=== PATIENT | female | born 1970 | race Caucasian/White ===

== ENCOUNTER → 2016-11-08 | Outpatient (CLI) | payer OTHER ==
[2016-11-08 18:17] LABS: THYROID STIMULATING HORMONE 0.692 uIu/ml (0.300-4.500)
== END | disposition home or self-care (01) ==
LOC: C.LABMFLN 13:57
PROVIDERS: ATTEND Family Medicine
DX: E03.9 Hypothyroidism, unspecified (principal)

== ENCOUNTER → 2018-05-14 | Outpatient (CLI) | payer OTHER ==
[2018-05-14 18:51] LABS: URIC ACID 4.4 mg/dl (2.6-7.2)
== END | disposition home or self-care (01) ==
LOC: C.LABMFLN 11:32
PROVIDERS: ATTEND Family Medicine
DX: M79.676 Pain in unspecified toe(s) (principal); E03.9 Hypothyroidism, unspecified

== ENCOUNTER 2024-08-25 05:58 | Observation (INO) ==
--- NOTE | 2024-08-05 11:56 | PAT Medication Instructions ---
Medication Instructions Date of Service August 05, 2024 Home Medications Medication Instructions Recorded blood-glucose meter (OneTouch #1 ea 05/19/22 Ultra2 Meter) lancets (OneTouch UltraSoft #100 ea 05/19/22 Lancets) ondansetron 4 mg disintegrating 4 mg PO Q8H PRN nausea and 07/27/22 tablet vomiting #60 tabs blood sugar diagnostic (OneTouch #100 ea 09/08/22 Ultra Test strips) duloxetine 60 mg capsule,delayed 60 mg PO BID #180 caps 11/20/22 release (Cymbalta) ondansetron 4 mg disintegrating tablet 4 mg PO Q8H PRN duloxetine 60 mg capsule,delayed release (Cymbalta) 60 mg PO BID aspirin 81 mg tablet,delayed release (Adult Low Dose Aspirin) 81 mg PO DAILY cholecalciferol (vitamin D3) 125 mcg (5,000 unit) capsule 1,000 unit PO DAILY magnesium 200 mg tablet 400 mg PO DAILY PRN metronidazole 0.75 % (37.5 mg/5 gram) vaginal gel 0.75 g vaginal DAILY PRN acetaminophen 500 mg tablet 1,000 mg PO Q6H PRN albuterol sulfate 90 mcg/actuation aerosol inhaler 2 puff inhalation QID PRN fluticasone 500 mcg-salmeterol 50 mcg/dose blistr powdr for inhalation 2 inh inhalation DAILY PRN levothyroxine 137 mcg tablet 137 mcg PO QAM omeprazole 40 mg capsule,delayed release 40 mg PO QAM pregabalin 150 mg capsule (Lyrica) 150 mg PO TID rosuvastatin 20 mg tablet (Crestor) 20 mg PO UD semaglutide 2 mg/dose (8 mg/3 mL) subcutaneous pen injector (Ozempic) 2 mg subcut WK STOP 7 days before surgery semaglutide 2 mg/dose (8 mg/3 mL) subcutaneous pen injector (Ozempic) 2 mg subcut WK Continue as directed fluticasone 500 mcg-salmeterol 50 mcg/dose blistr powdr for inhalation 2 inh inhalation DAILY PRN(if needed) rosuvastatin 20 mg tablet (Crestor) 20 mg PO UD ASK your prescriber and surgeon aspirin 81 mg tablet,delayed release (Adult Low Dose Aspirin) 81 mg PO DAILY STOP taking 24 hours before surgery metronidazole 0.75 % (37.5 mg/5 gram) vaginal gel 0.75 g vaginal DAILY PRN DO NOT take the morning of surgery cholecalciferol (vitamin D3) 125 mcg (5,000 unit) capsule 1,000 unit PO DAILY magnesium 200 mg tablet 400 mg PO DAILY PRN Take morning of surgery With a small sip of water, OTHERWISE NOTHING TO EAT OR DRINK AFTER MIDNIGHT: ondansetron 4 mg disintegrating tablet 4 mg PO Q8H PRN(if needed) duloxetine 60 mg capsule,delayed release (Cymbalta) 60 mg PO BID acetaminophen 500 mg tablet 1,000 mg PO Q6H PRN(if needed) albuterol sulfate 90 mcg/actuation aerosol inhaler 2 puff inhalation QID PRN(use if needed; please bring with you to hospital day of surgery if possible) levothyroxine 137 mcg tablet 137 mcg PO QAM omeprazole 40 mg capsule,delayed release 40 mg PO QAM pregabalin 150 mg capsule (Lyrica) 150 mg PO TID Take evening before surgery ondansetron 4 mg disintegrating tablet 4 mg PO Q8H PRN(if needed) duloxetine 60 mg capsule,delayed release (Cymbalta) 60 mg PO BID acetaminophen 500 mg tablet 1,000 mg PO Q6H PRN(if needed) albuterol sulfate 90 mcg/actuation aerosol inhaler 2 puff inhalation QID PRN(if needed) pregabalin 150 mg capsule (Lyrica) 150 mg PO TID Other Notes If you have any questions please call us at [phone] or [phone] or [phone] or [phone]
--- NOTE | 2024-08-11 13:20 | Anesthesiology Consultation ---
Date of Service August 11, 2024 Assessment & Plan (1) Encounter for pre-operative examination: Plan - check BSG am DOS. - awaiting surgeon ordered [facility] PCP pre-operative evaluation. - semaglutide instructions: Patient informed at PAT visit to stop 7 days prior to surgery- voiced understanding. Patient advised to check with prescriber to see if alternative diabetic management changes recommended while holding semaglutide- if so, patient to call back to PAT to update chart and discuss if any further preop medication instructions needed. Chart Review Chart Review: Pending: Refer to Additional Notes / Consult section and Patient seen in Pre Admission Testing Teaching & Discussion Pre-Anesthesia Teaching/Discussion Notes: Instructed NPO after midnight before surgery, except medications with 15 cc of water. Medication instructions provided according to the [facility] guidelines. History Surgery Operation Date: 08/25/24 12:25 Proposed Procedures p Anterior Cervical Discectomy and Fusion C5-C7 - Jass Huang DO Height/Weight Height: 5 ft 3.7 in Weight: 96.9 kg Allergies Allergy/AdvReac Type Severity Reaction Status Date / Time paroxetine [From Paxil] Allergy Severe suicidal Verified 08/11/24 13:31 tendencies codeine Allergy Mild Dizziness Verified 08/05/24 10:52 NSAIDS (Non-Steroidal Allergy Mild hx gastric Verified 08/05/24 10:52 Anti-Inflamma bypass / ulcer Medications Home Medications Medication Instructions Recorded Confirmed Last Taken blood-glucose meter (OneTouch #1 ea 05/19/22 01/05/23 Unknown Ultra2 Meter) lancets (OneTouch UltraSoft #100 ea 05/19/22 01/05/23 Unknown Lancets) ondansetron 4 mg disintegrating 4 mg PO Q8H PRN nausea and 07/27/22 08/05/24 Unknown tablet vomiting #60 tabs blood sugar diagnostic (OneTouch #100 ea 09/08/22 01/05/23 Unknown Ultra Test strips) duloxetine 60 mg capsule,delayed 60 mg PO BID #180 caps 11/20/22 08/05/24 Unknown release (Cymbalta) aspirin 81 mg tablet,delayed 81 mg PO DAILY 01/02/23 08/05/24 Unknown release (Adult Low Dose Aspirin) cholecalciferol (vitamin D3) 125 1,000 unit PO DAILY 01/04/23 08/05/24 Unknown mcg (5,000 unit) capsule magnesium 200 mg tablet 400 mg PO DAILY PRN muscle cramps 01/05/23 08/05/24 Unknown metronidazole 0.75 % (37.5 mg/5 0.75 g vaginal DAILY PRN vaginosis 01/05/23 08/05/24 Unknown gram) vaginal gel acetaminophen 500 mg tablet 1,000 mg PO Q6H PRN Pain 08/05/24 08/05/24 Unknown albuterol sulfate 90 mcg/actuation 2 puff inhalation QID PRN Cough 08/05/24 08/05/24 Unknown aerosol inhaler fluticasone 500 mcg-salmeterol 50 2 inh inhalation DAILY PRN sob 08/05/24 08/05/24 Unknown mcg/dose blistr powdr for inhalation levothyroxine 137 mcg tablet 137 mcg PO QAM 08/05/24 08/05/24 Unknown omeprazole 40 mg capsule,delayed 40 mg PO QAM 08/05/24 08/05/24 Unknown release pregabalin 150 mg capsule (Lyrica) 150 mg PO TID 08/05/24 08/05/24 Unknown rosuvastatin 20 mg tablet (Crestor) 20 mg PO UD 08/05/24 08/05/24 Unknown semaglutide 2 mg/dose (8 mg/3 mL) 2 mg subcut WK 08/05/24 08/05/24 Unknown subcutaneous pen injector (Ozempic) Past Medical History Medical History (Updated 08/11/24 @ 15:[address], MARIA T) Allergic rhinitis Anxiety Atherosclerosis of aorta Branch retinal vein occlusion Chronic GERD controlled, stable per pt Common migraine without aura Depression pt denies Fibromyalgia Ameya's thyroiditis History of COVID-19 (08/2023) History of non anemic vitamin B12 deficiency Hx of deep venous thrombosis (2014) right knee, unknown cause, eliquis x 7 months Hx of osteomyelitis had both pinky toes amputated Hypercholesterolemia Idiopathic macular telangiectasia type 2 pt. reports slowly losing central vision, has 2 small blind spots Lung nodules has annual lung ct Lymphadenopathy MGUS (monoclonal gammopathy of unknown significance) Osteoarthritis Parkinsonism pt. denies - pt. states "leftover tics from when i was placed on haldol in 2017" Peripheral neuropathy severe in feet and hands, reason for neurostimulator Plantar fascial fibromatosis of both feet PUD (peptic ulcer disease) Sleep apnea "mild" - not enough for cpap Spinal cord stimulator status (09/2022) due to severe neuropathy in feet Tobacco use Tourette's syndrome pt denies Type 2 diabetes mellitus NIDDM Patient denies h/o stroke, seizures, heart attack, heart failure, or blood transfusions. Exercise / Class Metabolic Activity II 4-5 Yardwork/Stairs/Walk up hill (denies chest discomfort or shortness of breath with one flight of stairs) Past Family History Family History Mother Coronary heart disease Dyslipidemia Past Surgical History Surgical History History of amputation of toe (2018) both small pinky toes due to diabetic ulcers / 2017 / 2018 History of appendectomy History of carpal tunnel release x2 on both wrists History of decompression of both ulnar nerves (2008) History of esophagogastroduodenoscopy (EGD) Hx of colonoscopy Hx of tonsillectomy S/P cholecystectomy S/P UVPP (uvulopalatopharyngoplasty) Status post gastric bypass for obesity (2006) Past Anesthesia History No Hx of Anesthesia Complications and No Family Hx of Anesthesia Complications History of PONV No Hx of PONV and No Hx of Motion Sickness Social History Smoking Status: Current every day smoker tobacco type: cigarettes Smoking cigarettes per day: 1 ppd (advised) Do You Dip or Chew Tobacco: No Hx Alcohol Use: Yes Alcohol type: hard liquor alcohol intake frequency: a few times a week Hx Substance Use: Yes substance use type: marijuana Last Used Substance Other:: medical marijuana (advised) Review of Systems Patient denies chest pain, shortness of breath, dyspnea on exertion, fever, chills, cough, wheezing, or palpitations. Physical Exam Vital Signs Vitals BP 121/80 P 83 TEMP 98.6 SP02 94% on RA RESP 18 Physical Patient resting comfortably in chair in no acute distress, alert and oriented, responding appropriately throughout visit Full cervical extension range of motion without pain TMD < 3 finger breadths Mallampati Score 3 Dentition: edentulous, full upper and lower dentures Lungs: normal respiratory effort. Good air movement, clear throughout to auscultation, no adventitious breath sounds Cardiac: regular rate and rhythm, no murmurs noted Carotid arteries: negative bruit bilat Lab Results Anesthesia Preop Results Results Anesthesia Widget: WBC 9.24 K/ul (4.8-10.8) 08/11/24 Hgb 14.7 g/dl (12.0-16.0) 08/11/24 Hct 43.7 % (37.0-47.0) 08/11/24 Plt 296 K/uL (130-400) 08/11/24 Na 139 mmol/L (136-145) 08/11/24 K 4.4 mmol/L (3.5-5.1) 08/11/24 Cl 103 mmol/L (98-107) 08/11/24 CO2 31 mmol/L (21-32) 08/11/24 BUN 11 mg/dl (6-23) 08/11/24 Creat 0.68 mg/dl (0.6-1.2) 08/11/24 Glucose Level 93 mg/dl (70-99(Fasting)) 08/11/24 PT 10.0 Seconds (9.0-12.0) 08/11/24 PTT 26 Seconds (21-31) 08/11/24 INR 0.9 (0.9-1.1) 08/11/24 HA1c 6.2 % (4.5-5.6) H 08/11/24 Urine Color Dark Yellow 08/11/24 Urine Appearance Cloudy (Clear) A 08/11/24 Urine pH 6.0 (4.5-7.5) 08/11/24 Urine Specific [place] 1.026 (1.000-1.030) 08/11/24 Urine Protein Negative (Negative) 08/11/24 Urine Glucose (UA) Negative (Negative) 08/11/24 Urine Ketones Trace (Negative) H 08/11/24 Urine Blood Negative (Negative) 08/11/24 Urine Nitrite Negative (Negative) 08/11/24 Urine Bilirubin Negative (Negative) 08/11/24 Urine Urobilinogen Negative (Negative) 08/11/24 Urine Leukocyte Esterase Negative (Negative) 08/11/24 Urine WBC (Auto) 0-5 /hpf (0-5) 08/11/24 Urine RBC (Auto) 3-5 /hpf (0-2) H 08/11/24 Urine Hyaline Casts (Auto) 0-2 /lpf (0-2) 08/11/24 Urine Epithelial Cells (Auto) 3-5 /hpf (0-2) H 08/11/24 Urine Bacteria (Auto) 1+ (None Seen) H 08/11/24 Blood Type B Positive 08/11/24 Antibody Screen NEGATIVE 08/11/24 Testing Laboratory Results Surgeon's office made aware of abnormal UA. Electrocardiogram Date: 08/11/24 NSR, rate 70 bpm Echocardiogram Date: 12/05/22 EF 60-64% Non-dilated cardiac chambers No significant valvular pathology Stress Test Date: 01/06/19 Inadequate cardiovascular stress test MPHR 72% METS 4.7 EF 66% No LV segmental wall motion abnormalities Other Testing Chest CT 04/03/24 Stable size of multiple solid nodules in both lungs measuring up to 5 mm in the right upper lobe Small calcified granuloma in the right middle lobe Stable small dome-shaped lesion along the left major fissure, consistent with a benign intrapulmonary lymph node
--- OUTSIDE RECORDS SUMMARY | 2024-08-25 06:07 | External Medical Summary ---
Author Name Unknown Address Unknown Organization [id number]:[facility] - [address] [facility] [place] [facility] [place] [address] Laboratory Report Ordering Provider Test Date Status BERHANE BUTLERULL 08/20/2024 10:42:30 Final Observation Date Value Abnormality Reference (Units ) Status T4, Free 08/20/2024 10:42:30 0.9 0.9-1.7 (n g/dL) Final Performing Location [facility] [address] [facility] [place] [id number]
--- OUTSIDE RECORDS SUMMARY | 2024-08-25 06:07 | External Medical Summary | Summary of Care ---
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 Name Role Phone Wesley Salguero MD Primary Care Provider Reason for Visit * Reason Comments pre-op exam Encounter Details Date Type Department Care Team ([facility] st Contact Info) Description 08/14/2024 10:00 AM EST Office Visit [facility] [address] [place] [id number] Jasmine Barreto PA-C [address] [place] [address] Preoperative general physical examination*; Cervical spondylosis with radiculopathy; Type 2 diabetes mellitus with hemoglobin A1c goal of less than 7.0% ([facility]) Allergies Active Allergy Reactions Criticality Noted Date Comments Codeine Itching,Other (Pleas e comment) 06/17/2016 "dizzy" Nickel 01/15/2023 Earrings - infection Nsaids Other (Please comment) 06/17/2016 Avoid d/t hx gastric bypass Paroxetine Hydrochloride Psych complications Medium 06/02/2010 documented as of this encounter (statuses as of 08/14/2024) Medications Polyethylene Glycol 3350 17 GM/SCOOP Oral Powder (Miralax)Indicatio ns:Chronic constipation Take 17 g by mouth in the morning. One cap full in juice, to effect 1 stool per day. .. 850 g 2 09/22/20 22 Active Magnesium 400 MG Oral Capsule Take 2 Capsules by mouth at bedtime. If diarrhea develops cut to 1 capsule at night 60 Capsule 5 02/02/20 23 Active metroNIDAZOLE 0.75 % Vaginal Gel Administer 1 Applicator into the vagina once a day Sunday and only. For 6 months following completion of oral antibiotics. 70 g 2 02/02/20 23 Active Nystatin 797291 UNIT/GM External Powder (Nystop)Indication s:Intertrigo Apply topically to affected area 3 times a day. Apply to groin until rash resolved. 60 g 1 02/02/20 23 Active Vitamin D (Cholecalciferol) 25 MCG (1000 UT) Oral Capsule Take by mouth every morning. 02/02/20 23 Active Ondansetron HCl 4 MG Oral Tablet (Zofran) Take 1 Tablet by mouth every 8 hours as needed for Nausea. 20 Tablet 1 04/13/20 23 Active Benzonatate 100 MG Oral Capsule (Tessalon Perlleticia)Indications :Bronchitis, complicated TAKE 1 CAPSULE BY MOUTH THREE TIMES A DAY NEEDED FOR COUGH 30 Capsule 1 09/20/20 23 Active Fluticasone-Salmet lindsey 500-50 MCG/ACT Inhalation Aerosol Powder Breath Activated (Advair Diskus)Indications :Asthma with severity to be determined INHALE 1 PUFF BY MOUTH IN THE MORNING AND BEFORE BEDTIME 180 Each 2 10/03/19 24 Active Famotidine 20 MG Oral Tablet (Pepcid) Take one tablet by mouth early afternoon and at bedtime 180 Tablet 3 12/17/19 24 Active Levothyroxine Sodium 137 MCG Oral Tablet (Levoxyl)Indicatio ns:Acquired hypothyroidism Take 1 Tablet by mouth daily first thing in the morning. (at least 30 min prior to breakfast or other meds) 90 Tablet 3 01/04/20 24 Active Albuterol Sulfate HFA 108 (90 Base) MCG/ACT Inhalation Aerosol SolutionIndication s:Bronchitis, complicated INHALE 2 PUFFS BY MOUTH 4 TIMES A DAY NEEDED FOR COUGH, SHORTNESS OF BREATH OR WHEEZING. 18 g 2 01/11/20 24 Active DULoxetine HCl 60 MG Oral Capsule Delayed Release Particles (Cymbalta)Indicati ons:Spinal stenosis of lumbar region with neurogenic claudication Take 1 Capsule by mouth in the morning and 1 Capsule before bedtime. 180 Capsule 2 01/23/20 24 Active tiZANidine HCl 4 MG Oral Tablet (Zanaflex)Indicati ons:Cervical radicular pain,Cervical myofascial pain syndrome TAKE 1 TABLET BY MOUTH EVERY 8 HOURS NEEDED FOR MUSCLE SPASM 90 Tablet 2 02/19/20 24 Active Ozempic (2 MG/DOSE) 8 MG/3ML Subcutaneous Solution Pen-injector (Semaglutide (2 MG/DOSE)) Inject 2 mg under the skin once a week. 3 mL 5 03/13/20 24 Active Omeprazole 40 MG Oral Capsule Delayed Release (PriLOSEC)Indicati ons:Gastroesophage al reflux disease without esophagitis Take 1 Capsule by mouth in the morning. 90 Capsule 1 03/24/20 24 Active Aspirin 81 MG Oral Tablet Delayed Release (Aspirin 81)Indications:His tory of DVT (deep vein thrombosis) Take 1 Tablet by mouth in the morning. 90 Tablet 1 03/24/20 24 Active Rosuvastatin Calcium 20 MG Oral Tablet (Crestor)Indicatio ns:Mixed dyslipidemia TAKE 1 TAB BY MOUTH ONCE A DAY ON SUNDAY, SUNDAY, AND SUNDAY ONLY. 39 Tablet 1 05/16/20 24 Active Pregabalin 150 MG Oral Capsule (Lyrica)Indication s:Spinal stenosis of lumbar region with neurogenic claudication TAKE 1 CAPSULE BY MOUTH EVERY DAY IN THE MORNING , AT NOON, AND BEFORE BEDTIME 90 Capsule 2 07/25/20 24 Active Ozempic (1 MG/DOSE) 4 MG/3ML Subcutaneous Solution Pen-injector (Semaglutide (1 MG/DOSE)) Inject 1 mg under the skin once a week. 3 mL 11 03/13/20 24 024 Discontin ued(Medic ation List Clean Up) Fluconazole 200 MG Oral Tablet (Diflucan)Indicati ons:Esophageal candidiasis (HCC) Take 400 mg (2 tablets) on day 1 then 1 tablet (200 mg) daily for 3 weeks total. 22 Tablet 05/20/20 24 024 Discontin ued(Medic ation List Clean Up) Doxycycline Hyclate 100 MG Oral Capsule Take 1 Capsule by mouth in the morning and 1 Capsule before bedtime. 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 05/25 Atherosclerosis of aorta 04/24/2023 Ede de la Tourette's syndrome 04/24/2023 Essential tremor 04/24/2023 Sensorineural hearing loss ( SNHL) of left ear with restricted hearing of right ear 04/24/2023 Acquired hypothyroidism 02/02/2023 Spinal cord stimulator status 02/02/2023 Bariatric surgery status 02/01/2023 Mixed dyslipidemia 02/01/2023 Lumbar spinal stenosis 11/29/2020 Type 2 diabetes mellitus wit h hemoglobin A1c goal of less than 7.0% 07/08/2009 GONZALES RESEARCH OTHER*[id number] 01/22/2007 Peripheral nerve disease 09/24/2002 Tobacco use documented as of this encounter (statuses as of 08/14/2024) Resolved Problems Problem Noted Date Diagnosed Date Resolved Date Acute deep vein thrombosis ( DVT) of lower extremity 04/24/2023 05/24/2023 Osteomyelitis 04/24/2023 08/07/2023 PTSD (post-traumatic stress disorder) 02/02/2023 08/14/2024 Disc disorder of lumbar region 11/29/2020 02/01/2023 Spells of decreased attentiveness 11/21/2016 02/01/2023 Xerostomia 09/06/2016 02/02/2023 Tongue pain 09/06/2016 11/14/2022 KARI (obstructive sleep apnea) 04/21/2015 02/02/2023 Hypersomnia due to drug 02/09/201510/26 Postgastric surgery syndrome 03/31/2014 02/01/2023 Overview (06/25/2017): ICD-10 update of inactive term HTN, goal below 140/80 05/13/201211/14 Overview: Per HTN Protocol #27. HPV DNA OF CERVIX POSITIVE-ASCUS 12/05/2010 02/02/2023 Obesity, morbid (more than 1 00 lbs over ideal weight or BMI > 40) 03/08/2010 11/14/2022 Overview (12/13/2015): Per Obesity Protocol, #19 ICD-10 update of inactive term HTN, GOAL BELOW 130/80 08/17/200905/16 Overview (08/17/2009): Modified per HTN protocol #16. Intestinal postoperative nonabsorption 04/10/2007 11/14/2022 ADVANCE DIRECTIVE INFORMATION 02/26/2007 11/14/2022 Overview (02/26/2007): No, Advance Directive brochure given to patient. DM type 2, not at goal 07/04/200607/08 Overview (07/08/2009): Modified per Diabetes protocol #14. Hypothyroidism 07/04/2006 02/02/2023 HYPERTENSION NOS 07/04/2006 08/17/2009 Overview (08/17/2009): Modified per HTN protocol #16. PURE HYPERCHOLESTEROLEM 07/04/200608/24 Overview (09/02/2009): Per Lipid Taxonomy. HYPERSOMNI W SLEEP APNEA 07/04/200607/2023 Gastroesophageal reflux dise ase without esophagitis 07/04/2006 08/14/2024 documented as of this encounter (statuses as of 08/14/2024) Immunizations Name Administration Dates Next Due COVID-19 mRNA, LNP-s, No Pre serve, 2-Dose Series (Pfizer) 07/06/2021,11/29/2020,11/01/2020 COVID-19, mRNA, LNP-s, PF, B ooster, 100mcg/0.5mg (Moderna) 01/18/2022 Covid-19, Mrna, Lnp-s, Pf, B ivalent, 30 Mcg, IM, 12 yrs and above (Pfizer) 06/12/2022 Pneumococcal Conjugate Vacci ne, 20-valent (Eurmkag39) 02/01/2023 Seasonal Influenza Vac., MDV , IM, 0.5 mL (Fluzone) 06/14/2016 Seasonal Influenza Virus Vac cine, Unspecified Formulation 07/06/2021,08/12/2020,07/29/2019 Seasonal Influenza, Recombin ant, RIV4, PF, (Flublock) 06/12/2022,08/08/2020,07/29/2019 TDAP (age 10 and older)(Boostrix) 05/19/2017 documented as of this encounter Social History Tobacco Use Types Packs/Day Years Used Date Smoking Tobacco: Every Day Cigarettes 1 35 Started: 01/1986; Last attempted to quit: 01/2021 Smokeless Tobacco: Never Alcohol Use Standard Drinks/Week Comments Yes 0 (1 standard drink = 0.6 oz pur e alcohol) weekly Hunger Vital Sign Answer Date Recorded Within the past 12 months, y ou worried that your food would run out before you got the money to buy more. Never true 07/31/20 24 Within the past 12 months, t he food you bought just didn't last and you didn't have money to get more. Never true 07/31/2024 Childcare Answer Date Recorded Do you feel overwhelmed with taking care of a child, family member or friend? No 07/31/2024 Does your family need help f inding childcare? (Household - for ages 0-17 years) Not on file 07/31/2024 Clothing Answer Date Recorded Have you been unable to get clothing when it was really needed? No 07/31/2024 Is your family able to get c lothes or diapers when needed? (Household - for ages 0-17 years) Not on file 07/31/2024 Personal Safety Answer Date Recorded Do you feel unsafe or have concerns for your saf ety? No 07/31/2024 Do you have concerns for you r family's safety? (Household - for ages 0-17 years) Not on file 07/31/2024 Utilities Answer Date Recorded Do you have trouble paying y our heating, water, or electric bill? No 07/31/2024 Is your family able to pay t he heat, water, or electric bill? (Household - for ages 0-17 years) Not on file 07/31/2024 Does your family have access to good internet? (Household - for ages 0-17 years) Not on file 07/31/2024 Employment Status Answer Date Recorded Are you unemployed or without regular income? No 07/31/2024 Does the household have a re gular source of income? (Household - for ages 0-17 years) Not on file 07/31/2024 Social Connections Answer Date Recorded How often do you feel lonely or isolated from th ose around you? Rarely 07/31/2024 Financial Resource Strain Answer Date R ecorded Do you have any trouble payi ng for your medications, or do you think you might in the future? No 07/31/2024 Does your family have troubl e paying for medicine? (Household - for ages 0-17 years) Not on file 07/31/2024 Transportation Needs Answer Date Record ed Do you have trouble getting a ride to medical visits or work? (Adult - for ages 18 years and over) Not on file 07/31/2024 Does your family have a hard time getting a ride to doctors visits? (Household - for ages 0-17 years) Not on file 07/31/2024 Has lack of transportation k ept you from medical appointments, meetings, work, or from getting things needed for daily living? Check all that apply. No 07/31/2024 Do you (or your family) have trouble finding or paying for a ride (transportation)? (Household - for ages 0-17 years) Not on file 07/31/2024 Housing Stability Answer Date Recorded Do you currently live in a s helter or have no steady place to sleep at night? No 07/31/2024 Do you think you are at risk of becoming homeless? (Adult - for ages 18 years and over) Not on file 07/31/2024 Does your family worry about paying for your home or becoming homeless? (Household - for ages 0-17 years) Not on file 1 09/30/2023 Are you homeless or worried that you might be in the future? No 07/31/2024 Are you (or your family) judith eless or worried that you might be in the future? (Household - for ages 0-17 years) Not on file Food Insecurity Answer Date Recorded Do you need food for this week? No 07/31/2024 Are you able to get enough f ood for your family? (Household - for ages 0-17 years) Not on file 07/31/2024 Does your family need food t his week? (Household - for ages 0-17 years) Not on file 07/31/2024 Do you always have enough fo od for your family? (Household - for ages 0-17 years) Not on file 07/31/2024 Comments No Sex and Gender Information Value Date Recorded Sex Assigned at Female 01/05/2022 11:45 AM EDT Legal Sex Female 5:55 AM EST Gender Identity Female 01/05/2022 11:45 AM EDT Sexual Orientation Straight 01/05/2022 11 :45 AM EDT Occupation Industry Job Start Date Job End Date [employer] Not on file Not on file Not o n file documented as of this encounter Last Filed Vital Signs Vital Sign Reading Time Taken Comments Blood Pressure 140/78 08/14/2024 9:48 AM EST Pulse 78 08/14/2024 9:48 AM EST Temperature 35.4 C (95.8 F) 08/14/2024 9:48 AM ES T Respiratory Rate 18 08/14/2024 9:48 AM EST Oxygen Saturation 97% 08/14/2024 9:48 AM EST Inhaled Oxygen Concentration - - Weight 97.9 kg (215 lb 14.4 oz) 08/14/2024 9:48 AM EST Height 166.4 cm (5' 5.5") 08/14/2024 9:48 AM EST Body Mass Index 35.38 08/14/2024 9:48 AM EST documented in this encounter Functional Status * Are you deaf or do you have serious difficulty hearing? Answer Date of Assessment Author No 03/11/2015 5:29 PM Teddy Singh RN * Are you blind or do you have serious difficulty seeing, even when wearing glasses? Answer Date of Assessment Author No 03/11/2015 5:29 PM Teddy Singh RN * Do you have serious difficulty walking or climbing stairs? (5 years old or older) Answer Date of Assessment Author No 03/11/2015 5:29 PM Teddy Singh RN * Do you have difficulty dressing or bathing? (5 years old or older) Answer Date of Assessment Author No 03/11/2015 5:29 PM Teddy Singh RN * Because of a physical, mental, or emotional condition, do you have difficulty doing errands alone such as visiting a doctors office or shopping? (15 years old or older) Answer Date of Assessment Author No 03/11/2015 5:29 PM Teddy Singh RN documented as of this encounter Mental Status * Because of a physical, mental, or emotional condition, do you have serious difficulty concentrating, remembering, or making decisions? (5 years old or older) Answer Entry Date Author No 03/11/2015 5:29 PM Teddy Singh RN documented in this encounter Patient Instructions * Patient Instructions* CruzgageChela sealsBAKARI - 08/14/2024 9:51 AM EST Diabetes: Keeping Feet Healthy Inspect your feet every day for signs of a problem. Diabetes can damage nerves in your feet and cause neuropathy. This condition makes it hard for you to feel injuries or sore spots. Diabetes can also change blood flow, making it harder for small problems, like a blister, to heal properly. In fact, minor injuries can quickly become serious infections that send you to the hospital. Practice self-care to protect your feet and keep them healthy. Take Special Care Inspect your feet daily for problems such as redness, blisters, cracks, dry skin, or numbness. Use a mirror to see the bottoms of your feet. Or, ask for help. Manage your diabetes. Monitor and control your blood sugar. Take all your medications as prescribed. Avoid walking barefoot, even indoors. Wash your feet with warm water and mild soap. Dry well, especially between toes. Dont treat corns or calluses yourself. Talk to your doctor or track laying machine operator (a doctor who specializes in foot care) if you need assistance trimming your toenails. Use moisturizing cream or lotion if you have dry skin, but dont use it between toes. Dont use heating pads on your feet. If you have neuropathy, you could get a burn and not feel it. Stop smoking. Smoking restricts blood flow and can make it harder for wounds to heal. Have Regular Checkups Foot problems can develop quickly. So be sure to follow your healthcare teams schedule for regular checkups. During office visits, take off your shoes and socks as soon as you get in the exam room. Ask your healthcare provider to examine your feet for problems. This will make it easier to find and treat small skin irritations before they get worse. Regular checkups can also help keep track of the blood flow and feeling in your feet. If you have neuropathy, you may need to have checkups more often. Wear Proper Footwear Wearing proper footwear is very important. If areas of your feet have been damaged by too much pressure, your healthcare provider may recommend changing your footwear. In some cases, avoiding high heels or tight work boots may be all thats needed. Or, your healthcare provider may recommend special shoes or custom inserts. These help protect your feet and keep existing irritations from getting worse. If you need special footwear, ask your healthcare provider if you qualify for [employer] diabetic shoe program. Make Sure Shoes and Socks Fit Any pair of shoes--new or old--should feel comfortable as soon as you put them on. There shouldnt be any rubbing when you walk. Wear the right shoe for any activity. For instance, a running shoe is designed to keep your feet injury-free while jogging. Buy shoes at the end of the day, when your feet are larger. Make sure they provide support without feeling too loose. Make sure your socks fit, t oo. Wear soft, seamless, well-padded socks for activity. Cotton or microfiber socks are best to help to absorb sweat. To protect your feet, avoid shoes that are open-toed or open-heeled. If you have questions about what kinds of shoes and socks are best, talk to your healthcare team. Get Regular Exercise Regular exercise improves blood flow in your feet. It also increases foot strength and flexibility.Gentle exercises, like walking or riding a stationary bicycle, are best. You can also do special foot exercises. Just be sure to talk with your healthcare provider before starting any exercise program. Also mention if any exercise causes pain, redness, or other signs of foot problems. Note: If you have any kind of break in the skin of your foot or ankle, keep the area clean. Then call your doctor--especially if the area doesnt appear to be healing. [id number] [employer], [address] [place] [address], [place] [address]. All rights reserved. This information is not intended as a substitute for professional medical care. Always follow your healthcare professional's instructions. documented in this encounter Progress Notes * Jasmine Barreto PA-C - 08/14/2024 10:03 AM EST Images from the original note were not included. Pre-Operative Medical Evaluation Chief Complaint Patient presents with pre-op exam Procedure Information Type of Surgery: Anterior cervical discectomy and fusion C5 to C7. Referring Physician / Surgeon: Reina Date of procedure: 08/25/24 Brief History of Present Illness: 53 yo female with chronic neck pain. Review of Systems: Constitutional ROS: No change in weight, No weakness, No fatigue, and No fevers, sweats, or chills Eye ROS: No recent significant change in vision, No eye pain, redness, discharge, and No diplopia Ear ROS: No ear pain, No drainage, No tinnitus or vertigo, and No recent change in hearing Nose ROS: No history of frequent colds or sinusitis, No nasal stuffiness, No history of Hay Fever, and No significant epistaxis Mouth/Throat ROS: No bleeding gums, No thrush, or No sore throat Neck ROS: No lumps or masses, No swollen glands, No recent swelling in thyroid area, and No significant pain in neck Pulmonary ROS: No cough, sputum, or hemoptysis, No wheezing, No rales, No shortness of breath, and No recent change in breathing Cardiovascular ROS: No chest pain, No shortness of breath, No dyspnea on exertion, No orthopnea, Noparoxysmal nocturnal dyspnea, No edema, No palpitations, and No syncope Gastrointestinal ROS: No abdominal pain, No change in bowel habits, No significant heartburn, No significant change in appetite, No nausea, vomiting, diarrhea, or constipation, No hematemesis, No blood in stools or black tarry stools, No abdominal bloating or early satiety, and No dysphagia Musculoskeletal/Extremities ROS: + neck pain, + back pain Psychiatric ROS: No depression and No anxiety Medical History Problem List: Class 2 severe obesity due to excess calories with serious comorbidity and body mass index (BMI) of 38.0 to 38.9 in adult (HCC) (01/04/2024) Type 1 macular telangiectasis of both eyes (05/25/2023) Atherosclerosis of aorta ([facility]) (04/24/2023) Acute deep vein thrombosis (DVT) of lower extremity ([facility]) (04/24/2023) Ede de la Tourette's syndrome (04/24/2023) Essential tremor (04/24/2023) Osteomyelitis ([facility]) (04/24/2023) Sensorineural hearing loss (SNHL) of left ear with restricted hearing of right ear (04/24/2023) Acquired hypothyroidism (02/02/2023) Spinal cord stimulator status (02/02/2023) PTSD (post-traumatic stress disorder) (02/02/2023) Bariatric surgery status (02/01/2023) Mixed dyslipidemia (02/01/2023) Disc disorder of lumbar region (11/29/2020) Lumbar spinal stenosis (11/29/2020) Spells of decreased attentiveness (11/21/2016) Xerostomia (09/06/2016) Tongue pain (09/06/2016) KARI (obstructive sleep apnea) (04/21/2015) Hypersomnia due to drug ([facility]) (02/09/2015) Postgastric surgery syndrome (03/31/2014) HTN, goal below 140/80 (05/13/2012) HPV DNA OF CERVIX POSITIVE-ASCUS (12/05/2010) Obesity, morbid (more than 100 lbs over ideal weight or BMI > 40) ([facility]) (03/08/2010) HTN, GOAL BELOW 130/80 (08/17/2009) Type 2 diabetes mellitus with hemoglobin A1c goal of less than 7.0% ([facility]) (07/08/2009) Intestinal postoperative nonabsorption (04/10/2007) ADVANCE DIRECTIVE INFORMATION (02/26/2007) GONZALES RESEARCH OTHER*[id number] (01/22/2007) DM type 2, not at goal ([facility]) (07/04/2006) Hypothyroidism (07/04/2006) HYPERTENSION NOS (07/04/2006) PURE HYPERCHOLESTEROLEM (07/04/2006) HYPERSOMNI W SLEEP APNEA (07/04/2006) Gastroesophageal reflux disease without esophagitis (07/04/2006) Peripheral nerve disease (09/24/2002) Tobacco use Current Medications Pregabalin 150 MG Oral Capsule (Lyrica), TAKE 1 CAPSULE BY MOUTH EVERY DAY IN THE MORNING , AT NOON, AND BEFORE BEDTIME Rosuvastatin Calcium 20 MG Oral Tablet (Crestor), TAKE 1 TAB BY MOUTH ONCE A DAY ON SUNDAY, SUNDAY, AND SUNDAY ONLY. Aspirin 81 MG Oral Tablet Delayed Release (Aspirin 81), 81 mg, Oral, Daily(AM) Omeprazole 40 MG Oral Capsule Delayed Release (PriLOSEC), 40 mg, Oral, Daily(AM) Ozempic (2 MG/DOSE) 8 MG/3ML Subcutaneous Solution Pen-injector (Semaglutide (2 MG/DOSE)), 2 mg, Subcutaneous, Q Week tiZANidine HCl 4 MG Oral Tablet (Zanaflex), TAKE 1 TABLET BY MOUTH EVERY 8 HOURS NEEDED FOR MUSCLE SPASM DULoxetine HCl 60 MG Oral Capsule Delayed Release Particles (Cymbalta), 60 mg, Oral, BID(AM/PM) Albuterol Sulfate HFA 108 (90 Base) MCG/ACT Inhalation Aerosol Solution, INHALE 2 PUFFS BY MOUTH 4 TIMES A DAY NEEDED FOR COUGH, SHORTNESS OF BREATH OR WHEEZING. Levothyroxine Sodium 137 MCG Oral Tablet (Levoxyl), 137 mcg, Oral, Daily 0630 Famotidine 20 MG Oral Tablet (Pepcid), Take one tablet by mouth early afternoon and at bedtime Fluticasone-Salmeterol 500-50 MCG/ACT Inhalation Aerosol Powder Breath Activated (Advair Diskus), INHALE 1 PUFF BY MOUTH IN THE MORNING AND BEFORE BEDTIME Benzonatate 100 MG Oral Capsule (Tessalon Perles), TAKE 1 CAPSULE BY MOUTH THREE TIMES A DAY NEEDED FOR COUGH Ondansetron HCl 4 MG Oral Tablet (Zofran), 4 mg, Oral, Q8H PRN Magnesium 400 MG Oral Capsule, 800 mg, Oral, HS metroNIDAZOLE 0.75 % Vaginal Gel, 1 Applicator, Vaginal, M;Th Nystatin [id number] UNIT/GM External Powder (Nystop), Apply topically to affected area 3 times a day. Apply to groin until rash resolved. Vitamin D (Cholecalciferol) 25 MCG (1000 UT) Oral Capsule, Take by mouth every morning. Polyethylene Glycol 3350 17 GM/SCOOP Oral Powder (Miralax), 17 g, Oral, Daily(AM) Allergies: Paxil [paroxetine hydrochloride], Codeine, Nickel, and Nsaids Past Medical History: has a past medical history of --- DIABETES --- (2002), ADVANCE DIRECTIVE INFORMATION (02/26/2007), Agoraphobia with panic disorder, Cervical dysplasia, DM type 2, goal A1c below 7 (2002), Dyslipidemia,goal LDL below 100 (09/02/2009), GERD (07/04/2006), Hereditary peripheral neuropathy(356.0), HPV DNA OF CERVIX POSITIVE-ASCUS (12/05/2010), HTN, goal below 140/80 (05/13/2012), HYPERSOMNI W SLEEP APNEA(07/04/2006), Hypothyroidism, INFORMATION, INTEST POSTOP NONABSORB (04/10/2007), Major depressive disorder, recurrent episode, severe, without mention of psychotic behavior, GONZALES RESEARCH OTHER*[id number] (01/22/2007), OBESITY, BMI 40 AND OVER (03/08/2010), Polycystic disease, ovaries, PTSD (post-traumatic stress disorder), Retinal telangiectasia, and Tobacco use. Past Surgical History: has a past surgical history that includes removal of tonsils, age 12+ (07/2006); Laparoscopic Gastric Bypass/DULCE MARIA-EN-Y (02/15/2007); laparoscope procedure, liver (02/15/2007); wedge biopsy of liver (02/15/2007); EGD, Flexible, Diagnostic (02/15/2007); Colonoscopy, Diagnostic (Rectum) (12/20/2007); carpal tunnel surgery (2008); information (Left, 02/17/2009); removal of appendix (04/08/2012); colposcopy of cervix w/biopsy (11/2010); cryocautery of cervix; Laparoscopy, Cholecystectomy with Cholangiography (N/A, 06/18/2018); amputation of toe (Left, 04/10/2019); repair of hammertoe, one toe (Right, 04/10/2019); revision of ulnar nerve at elbow (Bilateral); carpal tunnel surgery (Bilateral); amputation of toe (Right, 12/23/2019); EGD, Flexible, Diagnostic (N/A, 05/05/2020); Inject Dx/Ther Substance Interlaminar Lumbar/Sacral W Image Guide (N/A, 07/30/2020); EGD, Flexible, Diagnostic (N/A, 08/09/2020); Colonoscopy, Diagnostic (Rectum) (09/08/2020); L-/S-spine Paravertebrl facet Inj,2 levels (11/03/2020); L-/S-spine Paravertebral facet Inj,1 level (11/03/2020); Inject Dx/Ther Substance Interlaminar Lumbar/Sacral W Image Guide (N/A, 01/07/2021); Lumbar / Sacral Epidural, single level (Right, 04/01/2021); Lumbar / Sacral Epidural, add'l level (Right, 04/01/2021); Sacroiliac Joint Injectw/Guidance (Right, 06/16/2021); Colonoscopy, Diagnostic (Rectum) (N/A, 08/30/2021); implant epidural neuroelectrodes (N/A, 06/23/2022); Eval Neurostim Pulse Gen, w/ Reprogram (N/A, 06/23/2022); implant spinal neuroreceiver (N/A, 09/28/2022); implant epidural neuroelectrodes (N/A, 09/28/2022); Eval Neurostim Pulse Gen, w/ Reprogram (N/A, 09/28/2022); Procedure - General (02/23/2023); Fine Needle As piration Biopsy, w/o Imaging Guidance; 1st Lesion (N/A, 02/23/2023); Bone Marrow Biopsy (Left, 03/21/2023); Inject Dx/Ther Substance Interlaminar Cervical/Thoracic W Image Guide (N/A, 08/31/2023); implant neuroelectrodes, peripheral (Left, 01/09/2024); L-/S-spine Paravertebral facet Inj,1 level (Mayco ateral, 01/23/2024); L-/S-spine Paravertebrl facet Inj,2 levels (Bilateral, 01/23/2024); L-/S-spineParavertebral facet Inj,1 level (Bilateral, 02/07/2024); L-/S-spine Paravertebrl facet Inj,2 levels(Bilateral, 02/07/2024); Destroy Lumbar Sacral Nerve Imaging Single (Bilateral, 03/17/2024); Destroy Lumbar Sacral Nerve Imaging Add'l (Bilateral, 03/17/2024); Colonoscopy, Diagnostic (Rectum) (N/A, 05/16/2024); and EGD, Flexible, Diagnostic (N/A, 05/16/2024). Social History: reports that she has been smoking cigarettes. She started smoking about 38 years ago. She has a 35 pack-year smoking history. She has never used smokeless tobacco. She reports current alcohol use. She reports current drug use. Drug: Marijuana. Family History: family history includes Alcohol and Other Disorders Associated in her father; Breast Cancer (age ofonset: 45) in her aunt (maternal); Breast Cancer (age of onset: 55) in her grandmother (paternal); Breast Cancer (age of onset: 71) in her mother; Cervical Cancer in her mother; Diabetes in her grandmother (maternal); Eye Problems in her mother; Heart Disorder in her father and mother; Hypertensionin her brother (half); Leukemia (age of onset: 52) in her brother; Other in her mother; Stroke in her grandfather (maternal), grandfather (paternal), and grandmother (maternal). Anesthesia History Type of Anesthesia: General Endotracheal Anesthesia reaction: No History of surgical complications: None Personal history of venous thromboembolic disease: RLE DVT in 2014 - Eliquis for 7 months. No recurrence. Physical Exam Vitals: 08/14/24 0948 Temp: 95.8 F (35.4 C) Pulse: 78 Resp: 18 SpO2: 97% BP: 140/78 BMI: 35.37 General: alert, healthy, and no distress Head: Normocephalic, No masses, lesions, tenderness or abnormalities Eye Exam: PERRL, extraocular movements intact, conjunctiva are pink and non- injected, sclera clear Ears: External ears normal, Canals clear, TM's Normal Nose: no mucosal erythema, no mucosal edema, no purulent discharge Oropharynx: no exudate, no erythema, lips, buccal mucosa, and tongue normal, and mucous membranes are moist Neck: supple, no adenopathy, no bruits, thyroid normal size, non-tender, without nodularity Heart: regular rate & rhythm, no murmur, and no gallops Lungs: chest symmetric with normal AP diameter, no chest deformities noted, no chest wall tenderness, lungs clear to auscultation Pulses: radial=2/4, posterior tibial=2/4 Abdomen: abdomen soft, non-tender, normal bowel sounds Extremities: less than 2 second capillary refill, no edema, no clubbing, no cyanosis Neuro Exam: no focal motor/sensory deficits, gait normal Skin: skin color, texture, turgor are normal, no rashes or significant lesions Labs reviewed and are NOT significant. EKG by my review is NOT significant. Surgical Risk Scoring Revised Cardiac Risk Index (RCRI) High-risk type of surgery (examples include vascular and any open intraperitoneal or intrathoracic procedures): 0=No History of ischemic heart disease (history of myocardial infarction or positive exercise test, current compliant of chest pain considered to be secondary to myocardia ischemia, use of nitrate therapy, or ECG with pathological Q waves; do not count prior coronary revascularization procedure unless one of the other criteria for ischemic heart disease is present): 0=No History of heart failure: 0=No History of cerebrovascular disease: 0=No Diabetes mellitus requiring treatment with insulin: 0=No Preoperative serum creatinine >2.0 mg/dL (177 micromol/L): 0=No Pt has revised cardiac index score of: No Risk Factors- 0.4% (95% CI: 0.1-0.8) Mild Obstructive Sleep Apnea - CPAP not indicated. Assessment and Plan Preoperative general physical examination (Primary) Cervical spondylosis with radiculopathy - Patient is cleared to proceed with surgery under general anesthesia. Type 2 diabetes mellitus with hemoglobin A1c goal of less than 7.0% ([facility]) - DIABETES FOOT EXAM - ALBUMIN / CREATININE RATIO, URINE; Future; Expected date: 08/14/2024 Follow Up: Return in about 6 months (around 02/11/2025). Functional Assessment They are able to walk up a flight of stairs, walk two blocks at a moderate pace, do heavy house work like vacuuming, and grocery shop. The patient's functional status is good (greater than 4 METS). 1 MET: 4 METs: 4-10 METs: Can take care of self, such as eat, dress or use the toilet. Can walk to block or go up a flight of steps. Can do heavy house work. Surgical Risk Assessment Patient is low medical risk for the listed procedure. Medication adjustments: None Additional consults or testing: None Jasmine Barreto PA-C * Chela Simmons LPN - 08/14/2024 9:51 AM EST Chief Complaint Patient presents with Physical-Exam CPE. Denies any questions or concerns at this time Chela Simomns LPN Socks and Shoes Removed for Annual Diabetic Foot Screening RIGHT FOOT: No Reddened, Cracking, Or Open Areas Noted. RIGHT Dorsalis Pedis Pulse: Palpable RIGHT Posterior Tibial Pulse: Palpable RIGHT Monofilament:Patient reports no feeling of monofilament pressure on plantar surface of foot LEFT FOOT: No Reddened, Cracking or Open Areas Noted. LEFT Dorsalis Pedis Pulse: Palpable LEFT Posterior Tibial Pulse: Palpable LEFT Monofilament:Patient reports no feeling of monofilament pressure on plantar surface of foot Do you need diabetic shoes: No DM Foot Exam completed today. Provider aware. Chela Simmons LPN Urine albumin/creatinine ratio ordered today. Provider aware. Chela Simmons LPN documented in this encounter Plan of Treatment Upcoming Encounters Date Type Department Care Team (Late st Contact Info) Description 08/28/2024 8:30 AM EST Telemedicine Endocrinology [address] [place] [phone] Ramonita Peace PA-C [address] [place] [address] 10/20/2024 10:20 AM EST Laboratory Laboratory, [address] [phone] [facility], Lab [address] [place] [address] 10/29/2024 10:00 AM EST Telemedicine Hematology/Oncology, [address] [address] Edward Eastman MD [address] [place] [phone] Cart, Telemed [facility] [address] [place] [address] 02/25/2025 10:00 AM EDT Office Visit [facility] [address] [place] [phone] Wesley Salguero MD [address] [place] [phone] Scheduled Orders Name Type Priority Associated Diagnoses Orde r Schedule ALBUMIN / CREATININE RATIO, URINE Lab Routine Type 2 diabetes mellitus with hemoglobin A1c goal of less than 7.0% (HCC) Expected: 08/14/2024, Expires: 08/14/2025 Scheduled Procedures Name Priority Associated Diagnoses Date/Ti me COLONOSCOPY FLEXIBLE PROXIMA L DIAGNOSTIC Recall Screening for colon cancer Health Maintenance Due Date Last Done Comments DISCUSS TOBACCO CESSATION (REFER TO SMARTSET #6065) 1968 Depression Screening 1980 HIV Screening 1983 Hepatitis B Vaccine (1 of 3 - 19+ 3-dose series) 1987 HPV/Co-Test 1998 Cologuard 2013 Fecal Occult Blood Test 2013 11/08/19 11, 2009, 10/13/2008 Sigmoidoscopy 2013 Cervical Cancer Screening 10/26/2020 Pap Smear 10/26/2020 10/26/2017, 08/24, 09/04/2014, Additional history exists COVID-19 Vaccine ( season) 2024 08/08/2023, 06/12/2022, 01/18/2022, Additional history exists Influenza Vaccine (FLU shot) (#1) 2024 05/25/2023, 06/12/2022, 06/12/2022, Additional history exists Mammogram 2024 2023, 09/2021, 06/15/2021, Additional history exists Albumin/Creatinine Ratio 10/29/2024 10/29/2023 Diabetic Eye Exam 11/06/2024 11/06/2023, , 11/06/2023, Additional history exists TSH 02/06/2025 02/07/2024, 05/26, 02/06/2023, Additional history exists HbA1c 02/08/2025 08/11/2024, 01/22, 08/14/2023, Additional history exists GFR 08/11/2025 08/11/2024, 03/26, 04/07/2024, Additional history exists Diabetic Foot Exam 08/14/2025 08/14/2024 DTap/Tdap Vaccines (2 - Td or Tdap) 05/19/2027 05/19/2017 Colonoscopy 05/16/2034 05/16/2024, 04/25, 08/30/2021, Additional history exists Colorectal Cancer Screening 05/16/2034 Pneumococcal Vaccine: Pediatrics (0 to 5 Years) and At-Risk Patients (6 to 64 Years) Completed 02/01/2023 Zoster Vaccines Completed 12/25/2023, 08/08/2023 Lung Cancer Screening Completed 04/03/2024 , 03/23/2023, 10/26/2022 HPV (Gardasil) Vaccine Aged Out No lo nger eligible based on patient's age to complete this topic MENINGOCOCCAL (MENACTRA/MENVEO) Aged Out No longer eligible based on patient's age to complete this topic documented as of this encounter Medical Devices Implanted Type Area Dental Laboratory Worker Device Identifier Shelf Expiration Date Model / Serial / Lot Neurostimul Intellis Adaptiv - [id number] - [id number] Implanted:Qty: 1 on 09/28/2022 by Tanner Bruce MD at OR [facility] N/A: Back [employer] 09/06/2023 [id number] / [id number] / Vectris Surescan Mri 1x8 Compact Lead Kit For Scs Implanted:Qty: 1 on 09/28/2022 by Tanner Bruce MD at OR [facility] N/A: Back Medtronic 07/14/2026 [id number] / / [id number] Vectris Surescan Mri 1x8 Compact Lead Kit For Scs Implanted:Qty: 1 on 09/28/2022 by Tanner Bruce MD at OR [facility] N/A: Back [employer] 08/23/2026 [id number] / / [id number] Envelope Tyrx Lg [facility] - [id number] Implanted:Qty: 1 on 09/28/2022 by Tanner Bruce MD at OR [facility] N/A: Back [employer] 12/17/2022 [id number] / / [id number] Sprint Microlead 2.0 With Onepass Introducer Implanted:Qty: 1 on 01/09/2024 by Tanner Bruce MD at [facility] 05/03/2025 [id number] / / [id number] documented as of this encounter Visit Diagnoses Diagnosis Preoperative general physical examination- Primary Other specified pre-operative examination Cervical spondylosis with radiculopathy Cervical spondylosis with myelopathy Type 2 diabetes mellitus with hemoglobin A1c goal of less than 7.0% ([facility]) documented in this encounter Advance Directives * Full Code (Latest Code Status on File) Date Activated Date Inactivated Comments 03/11/2015 4:09 PM 03/12/2015 6:32 PM This order r eflects the patients wishes and were consensually agreed upon. Question Answer Comments Discussion of Advance Directives occurred with: Not Discussed Does the patient have a Living Will? Yes, not cu rrently available Does the patient have Health Care Power of High Lighter? Yes, not currently available Care Teams Helium Arc Welder Relationship Specialty Start Date End Date Wesley Salguero MD [address] [address] [place] [address] PCP - General Family Medicine 11/16/22 documented as of this encounter
--- OUTSIDE RECORDS SUMMARY | 2024-08-25 06:07 | External Medical Summary ---
Author Name Unknown Address Unknown Organization K01:LABORATORY [facility] - [address] [place] [address] Laboratory Report Ordering Provider Test Date Status ELLEN ROBISON 08/20/2024 10:43:14 Final Normal: <30 mg/g creatinine< br/>High: 30-300 mg/g creatinine
Very High: >300 mg/g creatinine
Nephrotic: >2200 mg/g creatinine Observation Date Value Abnormality Reference (Units ) Status Albumin, Urine 08/20/2024 10:43:14 <1.20 (mg/dL) Final Creatinine, Urine 08/20/2024 10:43:14 200 (mg/dL) Final Albumin/Creatinine [Mass Ratio] in Urine 08/20/2024 10:43:14 <6 <30 (mg/g Creat) Final Performing Location LABORATORY [facility] - [address] [place] [address]
--- OUTSIDE RECORDS SUMMARY | 2024-08-25 06:07 | External Medical Summary | Summary of Care ---
Author Name Unknown Organization [facility] Address [address] [place] [address] Phone [phone] Care Team Providers Care Ammunition Specialist Name Role Phone Wesley Salguero MD Primary Care Provider Reason for Visit * Reason Comments Outpatient Testing Encounter Details Date Type Department Care Team ([facility] st Contact Info) Description 08/20/2024 10:50 AM EST Laboratory Laboratory, [place] [address] [place] [address] [place], [facility] [address] [place] [address] Acquired hypothyroidism; Type 2 diabetes mellitus with hemoglobin A1c goal of less than 7.0% ([facility]) Allergies Active Allergy Reactions Criticality Noted Date Comments Codeine Itching,Other (Pleas e comment) 06/17/2016 "dizzy" Nickel 01/15/2023 Earrings - infection Nsaids Other (Please comment) 06/17/2016 Avoid d/t hx gastric bypass Paroxetine Hydrochloride Psych complications Medium 06/02/2010 documented as of this encounter (statuses as of 08/22/2024) Medications Polyethylene Glycol 3350 17 GM/SCOOP Oral [...] 70 g 2 02/02/20 23 Active Nystatin 968961 UNIT/GM External Powder (Nystop)Indication s:Intertrigo Apply topically [...] Active Benzonatate 100 MG Oral Capsule (Tessalon Perles)Indications :Bronchitis, complicated TAKE 1 CAPSULE BY MOUTH [...] bedtime 180 Tablet 3 12/17/19 24 Active Albuterol Sulfate HFA 108 (90 [...] SPASM 90 Tablet 2 02/19/20 24 Active Omeprazole 40 MG Oral Capsule [...] BEDTIME 90 Capsule 2 07/25/20 24 Active Levothyroxine Sodium 137 MCG Oral Tablet (Levoxyl)Indicatio ns:Acquired hypothyroidism Take 1 Tablet by mouth daily first thing in the morning. (at least 30 min prior to breakfast or other meds) 90 Tablet 3 01/04/20 24 024 Discontin ued(Medic ation/Dos e Changed) Ozempic (2 MG/DOSE) 8 MG/3ML Subcutaneous Solution Pen-injector (Semaglutide (2 MG/DOSE)) Inject 2 mg under the skin once a week. 3 mL 5 03/13/20 24 024 Discontin ued(End of Procedure ) documented as of this encounter (statuses as of 08/22/2024) Active Problems Problem Noted Date Diagnosed Date [...] A1c goal of less than 7.0% 07/08/2009 PARMELEE RESEARCH OTHER*[id number] 01/22/2007 Peripheral nerve disease 09/24/2002 Tobacco use documented as of this encounter (statuses as of 08/22/2024) Resolved Problems Problem Noted Date Diagnosed Date [...] as of this encounter (statuses as of 08/22/2024) Immunizations Name Administration Dates Next Due COVID-19 mRNA, LNP-s, No Pre serve, 2-Dose Series ([employer]) 07/06/2021,11/29/2020,11/01/2020 COVID-19, mRNA, LNP-s, PF, B ooster, 100mcg/0.5mg (Moderna) 01/18/2022 Covid-19, Mrna, Lnp-s, Pf, B ivalent, 30 Mcg, IM, 12 yrs and above ([employer]) 06/12/2022 Pneumococcal Conjugate Vacci ne, 20-valent ([id number]) 02/01/2023 Seasonal Influenza Vac., MDV , IM, [...] 07/31/2024 Does the household have a re lar source of income? (Household - for ages [...] n file documented as of this encounter Functional Status * Are you [...] Teddy Singh RN documented in this encounter Miscellaneous Notes * Result Encounter Note - Ramonita Peace PA-C - 08/22/2024 7:46 AM EST Pt notified via phone or Ullinkt message encounter. Carla Peace PA-C [facility] Endocrinology documented in this encounter Plan of Treatment Upcoming Encounters Date Type Department Care Team (Late st Contact Info) Description 10/20/2024 10:20 AM EST [address], [address] [phone] [facility], Lab [address] [place], [place] [address] [address] 10/29/2024 10:00 AM EST Telemedicine Hematology/Oncology, [facility] [address] [facility] [place] [address] Edward Eastman MD [address] [facility] [place] [phone] Cart, Telemed [facility] Hem Onc Clinic [address] [facility] [place] [address] 11/06/2024 10:30 AM EST Telemedicine Endocrinology [address] [place] [phone] Ramonita Peace PA-C [address] [facility] [place] [address] 02/25/2025 10:00 AM EDT Office Visit [facility] [address] [place] [address] Wesley Salguero MD [address] [place] [phone] Scheduled Procedures Name Priority Associated Diagnoses Date/Ti me COLONOSCOPY FLEXIBLE PROXIMA L DIAGNOSTIC Recall Screening for colon cancer Health Maintenance Due Date Last Done Comments DISCUSS TOBACCO CESSATION (REFER TO SMARTSET #9389) 1968 Depression Screening 1980 HIV Screening 1983 [...] 06/12/2022, Additional history exists Mammogram 2024 2023, 12/0 09/2021, 06/15/2021, Additional history exists Diabetic Eye Exam 11/06/2024 11/06/2023, , 11/06/2023, Additional history exists HbA1c 02/17/2025 08/20/2024, 07/25, 02/07/2024, Additional history exists GFR 08/11/2025 08/11/2024, 03/26, 04/07/2024, Additional history exists Diabetic Foot Exam 08/14/2025 08/14/2024 Albumin/Creatinine Ratio 08/20/2025 08/20/2024, 020 01/2024 TSH 08/20/2025 08/20/2024, 01/22, 06/13/2023, Additional history exists DTap/Tdap Vaccines (2 - Td or Tdap) [...] this encounter Medical Devices Implanted Type Area Bookkeeping Machine Mechanic Device Identifier Shelf Expiration Date Model / Serial / Lot Neurostimul Intellis Adaptiv - [id number] - [id number] Implanted:Qty: 1 on 09/28/2022 by Tanner Bruce MD at OR [facility] N/A: Back [employer] 09/06/2023 [id number] / [id number] / Vectris Surescan Mri 1x8 Compact Lead Kit For Scs Implanted:Qty: 1 on 09/28/2022 by Tanner Bruce MD at OR [facility] N/A: Back Medtronic 07/14/2026 [id number] / / [id number] Vectris Surescan Mri 1x8 Compact Lead Kit For Scs Implanted:Qty: 1 on 09/28/2022 by Tanner Bruce MD at OR [facility] N/A: Back [employer]onic 08/23/2026 [id number] / / [id number] Envelope Tyrx Lg Antibacterial - [id number] Implanted:Qty: 1 on 09/28/2022 by Tanner Bruce MD at OR [facility] N/A: Back [employer] 12/17/2022 [id number] / / [id number] Sprint Microlead 2.0 With Onepass Introducer Implanted:Qty: 1 on 01/09/2024 by Tanner Bruce MD at OR [facility] 05/03/2025 [id number] / / [id number] documented as of this encounter Procedures Procedure Name Priority Date/Time Associated Diagnosis Comments ALBUMIN / CREATININE RATIO, URINE Routine 08/20/2024 10:43 AM EST Type 2 diabetes mellitus with hemoglobin A1c goal of less than 7.0% (HCC) TSH WITH FREE T4 IF INDICATED Routine 08/20/2024 10:42 AM EST Acquired hypothyroidism T4, FREE Routine 08/20/2024 10:42 AM EST Acquired hypothyroidism HEMOGLOBIN A1C Routine 08/20/2024 10:41 AM EST Type 2 diabetes mellitus with hemoglobin A1c goal of less than 7.0% (HCC) documented in this encounter Results * ALBUMIN / CREATININE RATIO, URINE (08/20/2024 10:43 AM EST) Albumin, Random Urine <1.20 mg/dL 08/21/2024 12:58 AM EST LABORATORY [facility] Creatinine, Random Urine 200 mg/dL 08/21/2024 12:58 AM EST LABORATORY [facility] Albumin / Creatinine Ratio, Urine <6 <30 mg/g Creat 08/21/2024 12:58 AM EST LABORATORY [facility] Urine Urine specimen / Unknown 08/20/2024 10:43 AM EST 08/20/2024 10:43 AM EST Narrative LABORATORY [facility] - 08/21/2024 12:58 AM EST Normal: <30 mg/g creatinine High: 30-300 mg/g creatinine Very High: >300 mg/g creatinine Nephrotic: >2200 mg/g creatinine Jasmine Barreto PA-C LAB URINE ORDERABLES Final Result LABORATORY [address] [address] * T4, FREE (08/20/2024 10:42 AM EST) T4, Free 0.9 0.9 - 1.7 ng/dL 08/21/2024 12:58 AM EST LABORATORY [facility] Blood Venous blood specimen / Unknown Venipuncture / Unknown 08/20/2024 10:42 AM EST 08/20/2024 10:42 AM EST Ramonita Peace PA-C LAB BLOOD ORDERABLES Fin al Result LABORATORY [address] [address] * (ABNORMAL) TSH WITH FREE T4 IF INDICATED (08/20/2024 10:42 AM EST) TSH 8.84(H) 0.27 - 4.20 uIU/mL 08/21/2024 12:58 AM EST LABORATORY [facility] Blood Venipuncture / Unknown 08/20/2024 10:42 AM EST 08/20/2024 10:42 AM EST Ramonita Mony Kobi PA-C LAB BLOOD ORDERABLES Fin al Result Performing Organization Address [facility] de Phone Number LABORATORY [facility] [address] [place] [address] * (ABNORMAL) HEMOGLOBIN A1C (08/20/2024 10:41 AM EST) Hemoglobin A1C 6.2(H) 4.0 - 5.6 % 08/20/2024 9:44 PM EST LABORATORY [facility] Comment:The use of HbA1c to monitor glycemic status is based on normal hemoglobin and HbA composition. This test should not be used in patients with abnormal hemoglobin that affects the half life of the red blood cell or the in vivo glycation rates. Estimated Average Glucose 131(H) <126 mg/dL 08/20/2024 9:44 PM EST LABORATORY [facility] Blood Venipuncture / Unknown 08/20/2024 10:41 AM EST 08/20/2024 10:41 AM EST Ramonita [place]-C LAB BLOOD ORDERABLES Fin al Result Performing Organization Address [facility] de Phone Number LABORATORY [facility] [address] [place] [address] documented in this encounter Visit Diagnoses Diagnosis Acquired hypothyroidism Unspecified hypothyroidism Type 2 diabetes mellitus with hemoglobin A1c goal of less than 7.0% (HCC) documented in this encounter Advance Directives * [...] the patient have Health Care Power of Procedure Tech? Yes, not currently available Care Teams Ammunition Specialist Relationship Specialty Start Date End Date Wesley Salguero MD [address] [facility] [address] [place] [address] PCP - General Family Medicine 11/16/22 documented as of this encounter
--- OUTSIDE RECORDS SUMMARY | 2024-08-25 06:07 | External Medical Summary ---
Author Name Unknown Address Unknown Organization K01:[facility] [place] - [address] [facility] [address] Laboratory Report Ordering Provider Test Date Status RO BUTLER 08/20/2024 10:41:32 Final Observation Date Value Abnormality Reference (Units ) Status HbA1C 08/20/2024 10:41:32 6.2 Above high normal 4. 0-5.6 (%) Final The use of HbA1c to monitor glycemic status is based on normal hemoglobin and HbA composition. This test should not be used in patients with abnormal hemoglobin that affects the half life of the red blood cell or the in vivo glycation rates. Glucose, estimated average 08/20/2024 10:41:32 131 Above high normal <126 (mg/dL) Dae avitia Performing Location [facility] - [address] [facility] [address]
--- OUTSIDE RECORDS SUMMARY | 2024-08-25 06:07 | External Medical Summary | Summary of Care ---
Author Name Unknown Organization [facility] Address [address] [place] [address] Phone [phone] Care Team Providers Care Sewer Pipe Layer Helper Name Role Phone Wesley Salguero MD Primary Care Provider Encounter Details Date Type Department Care Team ([facility] st Contact Info) Description 08/18/2024 Orders Only PATIENT PORTAL DO NOT DELETE THIS DEPT USED BY [place] [id number] Allergies Active Allergy Reactions Criticality Noted Date Comments Codeine Itching,Other (Pleas e comment) 06/17/2016 "dizzy" Nickel 01/15/2023 Earrings - infection Nsaids Other (Please comment) 06/17/2016 Avoid d/t hx gastric bypass Paroxetine Hydrochloride Psych complications Medium 06/02/2010 documented as of this encounter (statuses as of 08/18/2024) Medications Polyethylene Glycol 3350 17 GM/SCOOP Oral Powder (Miralax)Indicatio ns:Chronic constipation Take 17 g by mouth in the morning. One cap full in juice, to effect 1 stool per day. .. 850 g 2 2 Active Magnesium 400 MG Oral Capsule Take 2 Capsules by mouth at bedtime. If diarrhea develops cut to 1 capsule at night 60 Capsule 5 3 Active metroNIDAZOLE 0.75 % Vaginal Gel Administer 1 Applicator into the vagina once a day Sunday and Thursday only. For 6 months following completion of oral antibiotics. 70 g 2 3 Active Nystatin 753893 UNIT/GM External Powder (Nystop)Indication s:Intertrigo Apply topically to affected area 3 times a day. Apply to groin until rash resolved. 60 g 1 3 Active Vitamin D (Cholecalciferol) 25 MCG (1000 UT) Oral Capsule Take by mouth every morning. 3 Active Ondansetron HCl 4 MG Oral Tablet (Zofran) Take 1 Tablet by mouth every 8 hours as needed for Nausea. 20 Tablet 1 3 Active Benzonatate 100 MG Oral Capsule (Tessalon Perles)Indications :Bronchitis, complicated TAKE 1 CAPSULE BY MOUTH THREE TIMES A DAY NEEDED FOR COUGH 30 Capsule 1 3 Active Fluticasone-Salmet lindsey 500-50 MCG/ACT Inhalation Aerosol Powder Breath Activated (Advair Diskus)Indications :Asthma with severity to be determined INHALE 1 PUFF BY MOUTH IN THE MORNING AND BEFORE BEDTIME 180 Each 2 4 Active Famotidine 20 MG Oral Tablet (Pepcid) Take one tablet by mouth early afternoon and at bedtime 180 Tablet 3 4 Active Levothyroxine Sodium 137 MCG Oral Tablet (Levoxyl)Indicatio ns:Acquired hypothyroidism Take 1 Tablet by mouth daily first thing in the morning. (at least 30 min prior to breakfast or other meds) 90 Tablet 3 4 Active Albuterol Sulfate HFA 108 (90 Base) MCG/ACT Inhalation Aerosol SolutionIndication s:Bronchitis, complicated INHALE 2 PUFFS BY MOUTH 4 TIMES A DAY NEEDED FOR COUGH, SHORTNESS OF BREATH OR WHEEZING. 18 g 2 4 Active DULoxetine HCl 60 MG Oral Capsule Delayed Release Particles (Cymbalta)Indicati ons:Spinal stenosis of lumbar region with neurogenic claudication Take 1 Capsule by mouth in the morning and 1 Capsule before bedtime. 180 Capsule 2 4 Active tiZANidine HCl 4 MG Oral Tablet (Zanaflex)Indicati ons:Cervical radicular pain,Cervical myofascial pain syndrome TAKE 1 TABLET BY MOUTH EVERY 8 HOURS NEEDED FOR MUSCLE SPASM 90 Tablet 2 4 Active Ozempic (2 MG/DOSE) 8 MG/3ML Subcutaneous Solution Pen-injector (Semaglutide (2 MG/DOSE)) Inject 2 mg under the skin once a week. 3 mL 5 4 Active Omeprazole 40 MG Oral Capsule Delayed Release (PriLOSEC)Indicati ons:Gastroesophage al reflux disease without esophagitis Take 1 Capsule by mouth in the morning. 90 Capsule 1 4 Active Aspirin 81 MG Oral Tablet Delayed Release (Aspirin 81)Indications:His tory of DVT (deep vein thrombosis) Take 1 Tablet by mouth in the morning. 90 Tablet 1 4 Active Rosuvastatin Calcium 20 MG Oral Tablet (Crestor)Indicatio ns:Mixed dyslipidemia TAKE 1 TAB BY MOUTH ONCE A DAY ON SUNDAY, SUNDAY, AND SUNDAY ONLY. 39 Tablet 1 4 Active Pregabalin 150 MG Oral Capsule (Lyrica)Indication s:Spinal stenosis of lumbar region with neurogenic claudication TAKE 1 CAPSULE BY MOUTH EVERY DAY IN THE MORNING , AT NOON, AND BEFORE BEDTIME 90 Capsule 2 4 Active documented as of this encounter (statuses as of 08/18/2024) Active Problems Problem Noted Date Diagnosed Date [...] of less than 7.0% 07/08/2009 [facility] [employer] OTHER*[id number] 01/22/2007 Peripheral nerve disease 09/24/2002 Tobacco use documented as of this encounter (statuses as of 08/18/2024) Resolved Problems Problem Noted Date Diagnosed Date [...] as of this encounter (statuses as of 08/18/2024) Immunizations Name Administration Dates Next Due COVID-19 mRNA, LNP-s, No Pre serve, 2-Dose Series (Pfizer) 07/06/2021,11/29/2020,11/01/2020 COVID-19, mRNA, LNP-s, PF, B ooster, 100mcg/0.5mg (Moderna) 01/18/2022 Covid-19, Mrna, Lnp-s, Pf, B ivalent, 30 Mcg, IM, 12 yrs and above (Pfizer) 06/12/2022 Pneumococcal Conjugate Vacci ne, 20-valent ([id number]) 02/01/2023 Seasonal Influenza Vac., MDV , IM, [...] Teddy Singh RN documented in this encounter Plan of Treatment Upcoming Encounters Date Type Department Care Team (Late st Contact Info) Description 10/20/2024 10:20 AM EST Laboratory Laboratory, [address] [phone] [facility], Lab [address] [place] [address] 10/29/2024 10:00 AM EST Telemedicine Hematology/Oncology, [address] [address] Edward Eastman MD [address] [place] [phone] Cart, Telemed [facility] Hem Onc [facility] [address] [place] [address] 11/06/2024 10:30 AM EST Telemedicine Endocrinology [address] Jimmy [place], [place] [phone] Ramonita Peace PA-C 100 [facility] [place] [phone] 02/25/2025 10:00 AM EDT Office Visit [facility] [address] [place] [phone] Wesley Salguero MD [address] [place] [address] Scheduled Procedures Name Priority Associated Diagnoses Date/Ti me COLONOSCOPY FLEXIBLE PROXIMA L DIAGNOSTIC Recall Screening for colon cancer Health Maintenance Due Date Last Done Comments DISCUSS TOBACCO CESSATION (REFER TO SMARTSET #3205) 1968 Depression Screening 1980 HIV Screening 1983 [...] 06/12/2022, Additional history exists Mammogram 2024 2023, 12/09/2021, 06/15/2021, Additional history exists Albumin/Creatinine Ratio 10/29/2024 [...] this encounter Medical Devices Implanted Type Area Executive Director Of Nursing Device Identifier Shelf Expiration Date Model / Serial / Lot Neurostimul Intellis Adaptiv - [id number] - [id number] Implanted:Qty: 1 on 09/28/2022 by Tanner Bruce MD at OR [facility] N/A: Back [employer] 09/06/2023 [id number] / [id number] / Vectris Surescan Mri 1x8 Compact Lead Kit For Scs Implanted:Qty: 1 on 09/28/2022 by Tanner Bruce MD at OR [facility] N/A: Back Medtronic 07/14/2026 [id number] / / [id number] Vectris Surescan Mri 1x8 Compact Lead Kit For Scs Implanted:Qty: 1 on 09/28/2022 by Tanner Bruce MD at OR [facility] N/A: Back Medtronic 08/23/2026 [id number] / / [id number] Envelope Tyrx Lg Antibacterial - [id number] Implanted:Qty: 1 on 09/28/2022 by Tanner Bruce MD at OR [facility] N/A: Back [employer] 12/17/2022 [id number] / / [id number] Sprint Microlead 2.0 With Onepass Introducer Implanted:Qty: 1 on 01/09/2024 by Tanner Bruce MD at OR [facility] 05/03/2025 [id number] / / [id number] documented as of this encounter Advance Directives * Full Code [...] the patient have Health Care Power of Human Services Worker? Yes, not currently available Care Teams Sewer Pipe Layer Helper Relationship Specialty Start Date End Date Wesley Salguero MD [address] [facility] [address] [facility] [place] [address] PCP - General Family Medicine 11/16/22 documented as of this encounter
--- OUTSIDE RECORDS SUMMARY | 2024-08-25 06:07 | External Medical Summary | Summary of Care ---
Author Name Unknown Organization [facility] Address [address] [place] [address] Phone [phone] Care Team Providers Care Firmware Software Verification Engineer Name Role Phone Wesley Salguero MD Primary Care Provider Reason for Visit * Reason Comments Outpatient Testing Encounter Details Date Type Department Care Team ([facility] st Contact Info) Description 08/20/2024 10:50 AM EST Laboratory Laboratory, [place] [address] [place] [address] [place], [facility] [address] [place] [address] Acquired hypothyroidism; Type 2 diabetes mellitus with hemoglobin A1c goal of less than 7.0% ([facility]) Allergies Active Allergy Reactions Criticality Noted Date Comments Codeine Itching,Other (Pleas e comment) 06/17/2016 "dizzy" Nickel 01/15/2023 Earrings - infection Nsaids Other (Please comment) 06/17/2016 Avoid d/t hx gastric bypass Paroxetine Hydrochloride Psych complications Medium 06/02/2010 documented as of this encounter (statuses as of 08/20/2024) Medications Polyethylene Glycol 3350 17 GM/SCOOP Oral [...] antibiotics. 70 g 2 3 Active Nystatin 650348 UNIT/GM External Powder (Nystop)Indication s:Intertrigo Apply topically [...] as of this encounter (statuses as of 08/20/2024) Active Problems Problem Noted Date Diagnosed Date [...] of less than 7.0% 07/08/2009 G[facility]ALES RESE[facility] OTHER*[id number] 01/22/2007 Peripheral nerve disease 09/24/2002 Tobacco use documented as of this encounter (statuses as of 08/20/2024) Resolved Problems Problem Noted Date Diagnosed Date [...] as of this encounter (statuses as of 08/20/2024) Immunizations Name Administration Dates Next Due COVID-19 mRNA, LNP-s, No Pre serve, 2-Dose Series ([employer]) 07/06/2021,11/29/2020,11/01/2020 COVID-19, mRNA, LNP-s, PF, B ooster, 100mcg/0.5mg (Moderna) 01/18/2022 Covid-19, Mrna, Lnp-s, Pf, B ivalent, 30 Mcg, IM, 12 yrs and above ([employer]) 06/12/2022 Pneumococcal Conjugate Vacci ne, 20-valent (Eoxnkou73) 02/01/2023 Seasonal Influenza Vac., MDV , IM, [...] of Assessment Author No 03/11/2015 5:29 PM EDT Elmer, P jenna J, RN * Are you blind or do [...] Description 10/20/2024 10:20 AM EST Laboratory Laboratory, [address] [phone] [facility], Lab [address] [place] [address] 10/29/2024 10:00 AM EST Telemedicine Hematology/Oncology, [address] [place] [address] Edward Eastman MD 400 [place] [phone] Abbi, Telemed [facility] Hem Onc Clinic [address] [place] [address] 11/06/2024 10:30 AM EST Telemedicine Endocrinology [address] [place] [phone] Ramonita Peace PA-C [address] [place] [phone] 02/25/2025 10:00 AM EDT Office Visit [facility] [address] [place] [address] Wesley Salguero MD [address] [place] [address] Pending Results Name Type Priority Associated Diagnoses Date /Time TSH WITH FREE T4 IF INDICATED Lab Routine Acquired hypothyroidism 08/20/2024 10:42 AM EST ALBUMIN / CREATININE RATIO, URINE Lab Routine Type 2 diabetes mellitus with hemoglobin A1c goal of less than 7.0% (HCC) 08/20/2024 10:43 AM EST HEMOGLOBIN A1C Lab Routine Type 2 diabetes mellitus with hemoglobin A1c goal of less than 7.0% (HCC) 08/20/2024 10:41 AM EST Scheduled Procedures Name Priority Associated Diagnoses Date/Ti me COLONOSCOPY FLEXIBLE PROXIMA L DIAGNOSTIC Recall Screening for colon cancer Health Maintenance Due Date Last Done Comments DISCUSS TOBACCO CESSATION (REFER TO SMARTSET #3380) 1968 Depression Screening 1980 HIV Screening 1983 [...] 2023, 12/0 09/2021, 06/15/2021, Additional history exists Albumin/Creatinine Ratio [...] this encounter Medical Devices Implanted Type Area Stave Log Ripsaw Operator Device Identifier Shelf Expiration Date Model / Serial / Lot Neurostimul Intellis Adaptiv - [id number] - [id number] Implanted:Qty: 1 on 09/28/2022 by Tanner Bruce MD at OR [facility] N/A: Back [employer] 09/06/2023 [id number] / [id number] / [employer] Surescan Mri 1x8 Compact Lead Kit For Scs Implanted:Qty: 1 on 09/28/2022 by Tanner Brcue MD at OR [facility] N/A: Back Medtronic 07/14/2026 [id number] / / [id number] Vectris Surescan Mri 1x8 Compact Lead Kit For Scs Implanted:Qty: 1 on 09/28/2022 by Tanner Bruce MD at OR [facility] N/A: Back Medtronic 08/23/2026 [id number] / / [id number] Envelope Tyrx Lg Antibacterial - [id number] Implanted:Qty: 1 on 09/28/2022 by Tanner Bruce MD at OR [facility] N/A: Back [employer] 12/17/2022 [id number] / / [id number] Sprint Microlead 2.0 With Onepass Introducer Implanted:Qty: 1 on 01/09/2024 by Tanner Bruce MD at OR [facility] 05/03/2025 [id number] / / [id number] documented as of this encounter Visit Diagnoses Diagnosis Acquired hypothyroidism [...] the patient have Health Care Power of Geometry Professor? Yes, not currently available Care Teams Firmware Software Verification Engineer Relationship Specialty Start Date End Date Wesley Salguero MD [address] [facility] [address] [facility] [place] [address] PCP - General Family Medicine 11/16/22 documented as of this encounter
--- OUTSIDE RECORDS SUMMARY | 2024-08-25 06:07 | External Medical Summary ---
Author Name Unknown Address Unknown Organization K01:[facility] [place] - [facility] [address] [facility] [address] [facility] [address] Laboratory Report Ordering Provider Test Date Status RO BUTLER 08/20/2024 10:42:30 Final Observation Date Value Abnormality Reference (Units ) Status TSH 08/20/2024 10:42:30 8.84 Above high normal 0. 27-4.20 (uIU/mL) Final Performing Location [facility] [place] - [facility] [address] [facility] [address]
--- OUTSIDE RECORDS SUMMARY | 2024-08-25 06:07 | External Medical Summary | Summary of Care ---
Author Name Unknown Organization [facility] Address [address] [place] [address] Phone [phone] Care Team Providers Care Stone Mill Operator Name Role Phone Wesley Salguero MD Primary Care Provider Reason for Visit * Reason Comments Outpatient Testing Encounter Details Date Type Department Care Team ([facility] st Contact Info) Description 08/20/2024 10:50 AM EST Laboratory Laboratory, [place] [address] [place] [address] [place], [facility] [address] [place] [address] Acquired hypothyroidism; Type 2 diabetes mellitus with hemoglobin A1c goal of less than 7.0% ([facility]) Allergies Active Allergy Reactions Criticality Noted Date [...] antibiotics. 70 g 2 3 Active Nystatin 182895 UNIT/GM External Powder (Nystop)Indication s:Intertrigo Apply topically [...] of less than 7.0% 07/08/2009 GONZALES RESEARCH OTHER*[id number] 01/22/2007 Peripheral nerve disease 09/24/2002 Tobacco use [...] mRNA, LNP-s, No Pre serve, 2-Dose Series ([employer]ARTIS) 07/06/2021,11/29/2020,11/01/2020 COVID-19, mRNA, LNP-s, PF, B ooster, 100mcg/0.5mg (Moderna) 01/18/2022 Covid-19, Mrna, Lnp-s, Pf, B ivalent, 30 Mcg, IM, 12 yrs and above (ADARTIS) 06/12/2022 Pneumococcal Conjugate Vacci ne, 20-valent (Evajaxq37) 02/01/2023 Seasonal Influenza Vac., MDV , IM, [...] Description 10/20/2024 10:20 AM EST Laboratory Laboratory, [address] [phone] [facility], Lab [address] [place] [address] 10/29/2024 10:00 AM EST Telemedicine Hematology/Oncology, [address] [place] [address] Edward Eastman MD 400 [place] [phone] Abbi, Telemed [facility] Hem Onc Clinic 400 [facility] [place] [address] 11/06/2024 10:30 AM EST Telemedicine Endocrinology [address] [place] [phone] Ramonita Peace PA-C [address] [place] [phone] 02/25/2025 10:00 AM EDT Office Visit [facility] [address] [place] [address] Wesley Salguero MD [address] [place] [address] Pending Results Name Type Priority Associated Diagnoses [...] Comments DISCUSS TOBACCO CESSATION (REFER TO SMARTSET #6671) 1968 Depression Screening 1980 HIV Screening 1983 [...] this encounter Medical Devices Implanted Type Area Authorization Representative Device Identifier Shelf Expiration Date Model / Serial / Lot Neurostimul Intellis Adaptiv - [id number] - [id number] Implanted:Qty: 1 on 09/28/2022 by Tanner Bruce MD at OR [facility] N/A: Back [employer] 09/06/2023 [id number] / [id number] / [employer] Surescan Mri 1x8 Compact Lead Kit For Scs Implanted:Qty: 1 on 09/28/2022 by Tanner Bruce MD at OR [facility] N/A: Back Medtronic 07/14/2026 [id number] / / [id number] Vectris Surescan Mri 1x8 Compact Lead Kit For Scs Implanted:Qty: 1 on 09/28/2022 by Tanner Bruce MD at OR [facility] N/A: Back Medtronic 08/23/2026 [id number] / / [id number] Envelope Tyrx Lg Antibacterial - [id number] Implanted:Qty: 1 on 09/28/2022 by Tanner Bruce MD at OR [facility] N/A: Back [employer] 12/17/2022 [id number] / / [id number] Sprint Microlead 2.0 With Onepass Introducer Implanted:Qty: 1 on 01/09/2024 by Tanner Bruce MD at OR [facility] 05/03/2025 [id number] / / [id number] documented as of this encounter Visit Diagnoses [...] the patient have Health Care Power of Grain Drier Operator? Yes, not currently available Care Teams Stone Mill Operator Relationship Specialty Start Date End Date Wesley Salguero MD [address] [facility] [address] [facility] [place] [address] PCP - General Family Medicine 11/16/22 documented as of this encounter
--- OUTSIDE RECORDS SUMMARY | 2024-08-25 06:07 | External Medical Summary | Summary of Care ---
Author Name Unknown Organization [facility] Address [address] [place] [address] Phone [phone] Care Team Providers Care Power Saw Mechanic Name Role Phone Wesley Salguero MD Primary Care Provider Reason for Visit * Reason Comments Outpatient Testing Encounter Details Date Type Department Care Team ([facility] st Contact Info) Description 08/20/2024 10:50 AM EST Laboratory Laboratory, [place] [address] [place] [address] [place], [facility] [address] [place] [address] Acquired hypothyroidism; Type 2 diabetes mellitus with hemoglobin A1c goal of less than 7.0% ([facility]) Allergies Active Allergy Reactions Criticality [...] antibiotics. 70 g 2 3 Active Nystatin 757637 UNIT/GM External Powder (Nystop)Indication s:Intertrigo Apply topically [...] of less than 7.0% 07/08/2009 GONZALES RESEARCH OTHER*[id number] 01/22/2007 Peripheral nerve disease 09/24/2002 Tobacco use [...] mRNA, LNP-s, No Pre serve, 2-Dose Series ([employer]) 07/06/2021,11/29/2020,11/01/2020 COVID-19, mRNA, LNP-s, PF, B ooster, 100mcg/0.5mg (Moderna) 01/18/2022 Covid-19, Mrna, Lnp-s, Pf, B ivalent, 30 Mcg, IM, 12 yrs and above ([employer]) 06/12/2022 Pneumococcal Conjugate Vacci ne, 20-valent ([id number]) 02/01/2023 Seasonal Influenza Vac., MDV , IM, [...] Description 10/20/2024 10:20 AM EST Laboratory Laboratory, [address] [phone] [facility], Lab [address] [place] [address] 10/29/2024 10:00 AM EST Telemedicine Hematology/Oncology, [address] [place] [address] Edward Eastman MD 400 [facility] [place] [place] [phone] Abbi, Telemed [facility] Hem Onc Clinic 400 [facility] [place] [address] 11/06/2024 10:30 AM EST Telemedicine Endocrinology [address] [place] [phone] Ramonita Peace PA-C [address] [place] [phone] 02/25/2025 10:00 AM EDT Office Visit [facility] [address] [place] [address] Wesley Salguero MD [address] [place] [address] Pending Results Name Type Priority Associated Diagnoses [...] Comments DISCUSS TOBACCO CESSATION (REFER TO SMARTSET #8519) 1968 Depression Screening 1980 HIV Screening 1983 [...] this encounter Medical Devices Implanted Type Area Motor Man Device Identifier Shelf Expiration Date Model / Serial / Lot Neurostimul Intellis Adaptiv - [id number] - [id number] Implanted:Qty: 1 on 09/28/2022 by Tanner Bruce MD at OR [facility] N/A: Back [employer] 09/06/2023 [id number] / [id number] / [employer] Surescan Mri 1x8 Compact Lead Kit For Scs Implanted:Qty: 1 on 09/28/2022 by Tanner Bruce MD at OR [facility] N/A: Back Medtronic 07/14/2026 [id number] / / [id number] Vectris Surescan Mri 1x8 Compact Lead Kit For Scs Implanted:Qty: 1 on 09/28/2022 by Tanner Bruce MD at OR [facility] N/A: Back Medtronic 08/23/2026 [id number] / / [id number] Envelope Tyrx Lg Antibacterial - [id number] Implanted:Qty: 1 on 09/28/2022 by Tanner Bruce MD at OR [facility] N/A: Back [employer] 12/17/2022 [id number] / / [id number] Sprint Microlead 2.0 With Onepass Introducer Implanted:Qty: 1 on 01/09/2024 by Tanner Bruce MD at OR [facility] 05/03/2025 [id number] / / [id number] documented as of this encounter Visit Diagnoses [...] the patient have Health Care Power of Payloader Machine Operator? Yes, not currently available Care Teams Power Saw Mechanic Relationship Specialty Start Date End Date Wesley Salguero MD [address] [facility] [address] [facility] [place] [address] PCP - General Family Medicine 11/16/22 documented as of this encounter
--- OUTSIDE RECORDS SUMMARY | 2024-08-25 06:08 | External Medical Summary | Summary of Care ---
Author Name Unknown Organization [facility] Address [address] [place] [address] Phone [phone] Care Team Providers Care Cylinder Devalver Name Role Phone Wesley Salguero MD Primary Care Provider Reason for Visit * Reason Comments pre-op exam Encounter Details Date Type Department Care Team ([facility] st Contact Info) Description 08/14/2024 10:00 AM EST Office Visit [facility] [address] [place] [address] Jasmine Barreto PA-C [address] [place] [address] Preoperative general physical examination*; Cervical spondylosis with radiculopathy; Type 2 diabetes mellitus with hemoglobin A1c goal of less than 7.0% ([facility]) Allergies Active Allergy Reactions Criticality [...] 70 g 2 02/02/20 23 Active Nystatin 539042 UNIT/GM External Powder (Nystop)Indication s:Intertrigo Apply topically [...] of less than 7.0% 07/08/2009 GONZALES RESEARCH OTHER*[id number] 01/22/2007 Peripheral nerve disease 09/24/2002 Tobacco use [...] (Pfizer) 06/12/2022 Pneumococcal Conjugate Vacci ne, 20-valent ([id number]) 02/01/2023 Seasonal Influenza Vac., MDV , IM, [...] calluses yourself. Talk to your doctor or auto repair technician (a doctor who specializes in foot care) [...] the area doesnt appear to be healing. [phone] [employer], [address] [place] [address], [place] [address]. All rights reserved. 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 ([facility]) (02/09/2015) Postgastric surgery syndrome (03/31/2014) HTN, goal below 140/80 (05/13/2012) HPV DNA OF CERVIX POSITIVE-ASCUS (12/05/2010) Obesity, morbid (more than 100 lbs over ideal weight or BMI > 40) ([facility]) (03/08/2010) HTN, GOAL BELOW 130/80 (08/17/2009) Type 2 diabetes mellitus with hemoglobin A1c goal of less than 7.0% ([facility]) (07/08/2009) Intestinal postoperative nonabsorption (04/10/2007) ADVANCE DIRECTIVE INFORMATION (02/26/2007) GONZALES RESEARCH OTHER*[id number] (01/22/2007) DM type 2, not at goal ([facility]) (07/04/2006) Hypothyroidism (07/04/2006) HYPERTENSION NOS (07/04/2006) PURE [...] Vaginal Gel, 1 Applicator, Vaginal, M;Th Nystatin 939873 UNIT/GM External Powder (Nystop), Apply topically to [...] without mention of psychotic behavior, GONZALES RESEARCH OTHER*[id number] (01/22/2007), OBESITY, BMI 40 AND OVER (03/08/2010), [...] hemoglobin A1c goal of less than 7.0% ([facility]) - DIABETES FOOT EXAM - ALBUMIN / [...] questions or concerns at this time Chela Simmons LPN Socks and Shoes Removed for Annual [...] Dr. [phone] Ramonita Peace PA-C [address] [place] [address] 10/20/2024 10:20 AM EST Laboratory Laboratory, [address] [phone] [facility], Lab [address] [place] [address] 10/29/2024 10:00 AM EST Telemedicine Hematology/Oncology, [address] [address] Edward Eastman MD [address] [place] [phone] Cart, Telemed [facility] Hem Onc Clinic [address] [place] [address] 02/25/2025 10:00 AM EDT Office Visit [facility] [address] [place] [phone] Wesley Salguero MD [address] [place] [phone] Scheduled Orders Name Type Priority Associated Diagnoses [...] Comments DISCUSS TOBACCO CESSATION (REFER TO SMARTSET #6928) 1968 Depression Screening 1980 HIV Screening 1983 [...] this encounter Medical Devices Implanted Type Area Ear Nose Throat Surgeon Device Identifier Shelf Expiration Date Model / Serial / Lot Neurostimul Intellis Adaptiv - [id number] - [id number] Implanted:Qty: 1 on 09/28/2022 by Tanner Bruce MD at OR [facility] N/A: Back [employer] 09/06/2023 [id number] / [id number] / Vectris Surescan Mri 1x8 Compact Lead Kit For Scs Implanted:Qty: 1 on 09/28/2022 by Tanner Bruce MD at OR [facility] N/A: Back Medtronic 07/14/2026 [id number] / / [id number] Vectris Surescan Mri 1x8 Compact Lead Kit For Scs Implanted:Qty: 1 on 09/28/2022 by Tanner Bruce MD at OR [facility] N/A: Back Medtronic 08/23/2026 [id number] / / [id number] Envelope Tyrx Lg [facility] - [id number] Implanted:Qty: 1 on 09/28/2022 by Tanner Bruce MD at OR [facility] N/A: Back [employer] 12/17/2022 [id number] / / [id number] Sprint Microlead 2.0 With Onepass Introducer Implanted:Qty: 1 on 01/09/2024 by Tanner Bruce MD at OR [facility] 05/03/2025 [id number] / / [id number] documented as of this encounter Visit Diagnoses Diagnosis Preoperative general physical examination- Primary Other specified pre-operative examination Cervical spondylosis with radiculopathy Cervical spondylosis with myelopathy Type 2 diabetes mellitus with hemoglobin A1c goal of less than 7.0% ([facility]) documented in this encounter Advance Directives * [...] the patient have Health Care Power of Safety Specialist? Yes, not currently available Care Teams Cylinder Devalver Relationship Specialty Start Date End Date Wesley Salguero MD [address] [address] [place] [address] PCP - General Family Medicine 11/16/22 documented as of this encounter
--- OUTSIDE RECORDS SUMMARY | 2024-08-25 06:08 | External Medical Summary | Summary of Care ---
Author Name Unknown Organization [facility] Address [address] [place] [address] Phone [phone] Care Team Providers Care Aesthetician Name Role Phone Wesley Salguero MD Primary Care Provider Encounter Details Date Type Department Care Team (Late st Contact Info) Description 08/14/2024 Orders Only [facility] [address] [place] [phone] Wesley Salguero MD [address] [place] [address] Allergies Active Allergy Reactions Criticality Noted Date [...] antibiotics. 70 g 2 3 Active Nystatin 421059 UNIT/GM External Powder (Nystop)Indication s:Intertrigo Apply topically [...] SPASM 90 Tablet 2 4 Active Ozempic (1 MG/DOSE) 4 MG/3ML Subcutaneous Solution Pen-injector (Semaglutide (1 MG/DOSE)) Inject 1 mg under the skin once a week. 3 mL 11 4 Active Ozempic (2 MG/DOSE) 8 MG/3ML [...] SUNDAY ONLY. 39 Tablet 1 4 Active Fluconazole 200 MG Oral Tablet (Diflucan)Indicati ons:Esophageal candidiasis (HCC) Take 400 mg (2 tablets) on day 1 then 1 tablet (200 mg) daily for 3 weeks total. 22 Tablet 4 Active Doxycycline Hyclate 100 MG Oral Capsule Take 1 Capsule by mouth in the morning and 1 Capsule before bedtime. 20 Capsule 4 Active Pregabalin 150 MG Oral Capsule [...] hypothyroidism 02/02/2023 Spinal cord stimulator status 02/02/2023 PTSD (post-traumatic stress disorder) 02/02/2023 Bariatric surgery status 02/01/2023 Mixed dyslipidemia 02/01/2023 Lumbar spinal stenosis 11/29/2020 Type 2 diabetes mellitus wit h hemoglobin A1c goal of less than 7.0% 07/08/2009 GONZALES RESEARCH OTHER*[id number] 01/22/2007 Gastroesophageal reflux disease without esophagi tis 07/04/2006 Peripheral nerve disease 09/24/2002 Tobacco use documented as of this encounter (statuses as of 08/14/2024) Resolved Problems Problem Noted Date Diagnosed Date Resolved Date Acute deep vein thrombosis ( DVT) of lower extremity 04/24/2023 05/24/2023 Osteomyelitis 04/24/2023 08/07/2023 Disc disorder of lumbar region 11/29/2020 02/01/2023 [...] Lipid Taxonomy. HYPERSOMNI W SLEEP APNEA 07/04/200607/2023 documented as of this encounter (statuses as of 08/14/2024) Immunizations Name Administration Dates Next Due COVID-19 mRNA, LNP-s, No Pre serve, 2-Dose Series (CREOpoint) 07/06/2021,11/29/2020,11/01/2020 COVID-19, mRNA, LNP-s, PF, B ooster, 100mcg/0.5mg (Moderna) 01/18/2022 Covid-19, Mrna, Lnp-s, Pf, B ivalent, 30 Mcg, IM, 12 yrs and above (CREOpoint) 06/12/2022 Pneumococcal Conjugate Vacci ne, 20-valent ([id number]) 02/01/2023 Seasonal Influenza Vac., MDV , IM, 0.5 mL (Fluzone) 06/14/2016 Seasonal Influenza Virus Vac cine, Unspecified Formulation 07/06/2021,08/12/2020,07/29/2019 Seasonal Influenza, Recombin ant, RIV4, PF, (Flublock) 06/12/2022,08/08/2020,07/29/2019 TDAP (age 10 and older)(Boostrix) 05/19/2017 documented as of this encounter Social History Tobacco Use Types Packs/Day Years Used Date Smoking Tobacco: Every Day Cigarettes 1 35 Started: 01/1986; Last attempted to quit: 01/2021 Cigars Smokeless Tobacco: Never Alcohol Use Standard Drinks/Week [...] of Assessment Author No 03/11/2015 5:29 PM EDTeddy Resendiz RN * Do you have serious difficulty [...] Care Team (Late st Contact Info) Description 08/14/2024 10:00 AM EST Office Visit [facility] [address] [place] [phone] Jasmine Barreto PA-C [address] [place] [address] 08/28/2024 8:30 AM EST Telemedicine Endocrinology [address] [place] [phone] Ramonita Peace PA-C [address] [place] [address] 10/20/2024 10:20 AM EST Laboratory Laboratory, [address] [phone] [facility], Lab [address] [place] [address] 10/29/2024 10:00 AM EST Telemedicine Hematology/Oncology, [address] [address] Edward Eastman MD [address] [place] [phone] Cart, Telemed [facility] Hem Onc Clinic [address] [place] [address] Scheduled Procedures Name Priority Associated Diagnoses Date/Ti me COLONOSCOPY FLEXIBLE PROXIMA L DIAGNOSTIC Recall Screening for colon cancer Health Maintenance Due Date Last Done Comments DISCUSS TOBACCO CESSATION (REFER TO SMARTSET #2228) 1968 Depression Screening 1980 HIV Screening 1983 Diabetic Foot Exam 1986 Hepatitis B Vaccine (1 of 3 - 19+ 3-dose series) 1987 HPV/Co-Test 1998 Cologuard 2013 Fecal Occult Blood Test 2013 11/08/19 11, 2009, 10/13/2008 Sigmoidoscopy 2013 Cervical Cancer Screening 10/26/2020 Pap Smear 10/26/2020 10/26/2017, 08/24, 09/04/2014, Additional history exists COVID-19 Vaccine ( season) 2024 08/08/2023, 06/12/2022, 01/18/2022, Additional history exists Influenza Vaccine (FLU shot) (#1) 2024 05/25/2023, 06/12/2022, 06/12/2022, Additional history exists HbA1c 08/09/2024 08/11/2024, 01/22, 08/14/2023, Additional history exists Mammogram 2024 2023, 12/0 09/2021, 06/15/2021, Additional history exists Albumin/Creatinine Ratio 10/29/2024 10/29/2023 Diabetic Eye Exam 11/06/2024 11/06/2023, , 11/06/2023, Additional history exists TSH 02/06/2025 02/07/2024, 05/26, 02/06/2023, Additional history exists GFR 04/23/2025 08/11/2024, 03/26, 04/07/2024, Additional history exists DTap/Tdap Vaccines (2 - [...] this encounter Medical Devices Implanted Type Area Ship Engineer Device Identifier Shelf Expiration Date Model / Serial / Lot Neurostimul Intellis Adaptiv - [id number] - [id number] Implanted:Qty: 1 on 09/28/2022 by Tanner Bruce MD at OR [facility] N/A: Back [employer] 09/06/2023 [id number] / [id number] / Nimayaris Surescan Mri 1x8 Compact Lead Kit For Scs Implanted:Qty: 1 on 09/28/2022 by Tanner Bruce MD at OR [facility] N/A: Back Medtronic 07/14/2026 [id number] / / [id number] Vectris Surescan Mri 1x8 Compact Lead Kit For Scs Implanted:Qty: 1 on 09/28/2022 by Tanner Bruce MD at OR [facility] N/A: Back Medtronic 08/23/2026 [id number] / / [id number] Envelope Tyrx Lg Antibacterial - [id number] Implanted:Qty: 1 on 09/28/2022 by Tanner Bruce MD at OR [facility] N/A: Back [employer] 12/17/2022 [id number] / / [id number] Sprint Microlead 2.0 With Onepass Introducer Implanted:Qty: 1 on 01/09/2024 by Tanner Bruce MD at OR [facility] 05/03/2025 [id number] / / [id number] documented as of this encounter Procedures Procedure Name Priority Date/Time Associated Diagnosis Comments CHEMISTRY-OUTSIDE Routine 08/11/2024 documented in this encounter Results * (ABNORMAL) CHEMISTRY-OUTSIDE (08/11/2024) Not all results display below - see scan for full detail OUTSIDE LAB (SEE SCANNED REPORT) Comment:SCAN INCLUDES - A1C, CBCD, UA, PT INR, PTT, CMP CREATININE 0.68 0.6 - 1.2 MG/DL OUTSIDE LAB (SEE SCANNED REPORT) EGFR 102.79 ML/MIN OUTSIDE LA B (SEE SCANNED REPORT) POTASSIUM 4.4 3.5 - 5.1 MMOL/L OUTSIDE LAB (SEE SCANNED REPORT) GLUCOSE 93 70 - 99 MG/DL OUTSIDE LAB (SEE SCANNED REPORT) HOURS FASTING OUTSID E LAB (SEE SCANNED REPORT) TRIGLYCERIDES-OU TSIDE LAB OUTSIDE LAB (SEE SCANNED REPORT) CHOLESTEROL-OUTS EMILY LAB OUTSIDE LAB (SEE SCANNED REPORT) HDL-OUTSIDE LAB OUTS EMILY LAB (SEE SCANNED REPORT) CHOL/HDL RATIO-OUTSIDE LAB OUTSIDE LAB (SEE SCANNED REPORT) LDL (CALCULATED)-OUT SIDE LAB OUTSIDE LAB (SEE SCANNED REPORT) LDL (DIRECT MEASURE)-OUTSIDE LAB OUTSIDE LAB (SEE SCANNED REPORT) HEMOGLOBIN, [id number] LAB 6.2(A) 4.5 - 5.6 % OUTSIDE LAB (SEE SCANNED REPORT) PHOSPHORUS-OUTSI DE LAB OUTSIDE LAB (SEE SCANNED REPORT) PTH-OUTSIDE LAB OUTS EIMLY LAB (SEE SCANNED REPORT) MICROALBUMIN RATIO-OUTSIDE LAB OUTSIDE LAB (SEE SCANNED REPORT) PROTEIN, UA-OUTSIDE LAB NEGATIVE NEGATIVE OUTSIDE LAB (SEE SCANNED REPORT) HGB 14.7 12.0 - 16.0 G/DL OUTSIDE LAB (SEE SCANNED REPORT) 08/11/2024 Wesley Salguero MD LABORATORY Final Result OUTSIDE LAB (SEE SCANNED REPORT) documented in this encounter Advance Directives * [...] the patient have Health Care Power of Cytotechnologist/Cytology Supervisor? Yes, not currently available Care Teams Aesthetician Relationship Specialty Start Date End Date Wesley Salguero MD [address] [facility] [address] [place] [address] PCP - General Family Medicine 11/16/22 documented as of this encounter
--- OUTSIDE RECORDS SUMMARY | 2024-08-25 06:08 | External Medical Summary | Summary of Care ---
Author Name Unknown Organization [facility] Address [address] [place] [address] Phone [phone] Care Team Providers Care Instrument Mechanics Supervisor Name Role Phone Wesley Salguero MD Primary Care Provider Encounter Details Date Type Department Care Team ([facility] st Contact Info) Description 08/11/2024 Result Scan Unspecified Department <No scans attached> Allergies Active Allergy Reactions Criticality Noted Date [...] antibiotics. 70 g 2 3 Active Nystatin 994510 UNIT/GM External Powder (Nystop)Indication s:Intertrigo Apply topically [...] A1c goal of less than 7.0% 07/08/2009 OSAGE RESEARCH OTHER*[id number] 01/22/2007 Gastroesophageal reflux disease without esophagi tis [...] mRNA, LNP-s, No Pre serve, 2-Dose Series (Jade Magnet) 07/06/2021,11/29/2020,11/01/2020 COVID-19, mRNA, LNP-s, PF, B ooster, 100mcg/0.5mg (Moderna) 01/18/2022 Covid-19, Mrna, Lnp-s, Pf, B ivalent, 30 Mcg, IM, 12 yrs and above (Pfizer) 06/12/2022 Pneumococcal Conjugate Vacci ne, 20-valent ([id number]) 02/01/2023 Seasonal Influenza Vac., MDV , IM, [...] No 07/31/2024 Does the household have a [facility] source of income? (Household - for ages [...] Description 08/14/2024 10:00 AM EST Office Visit [facility] [address] [place] [address] Jasmine Barreto PA-C [address] [place] [address] 08/28/2024 8:30 AM EST Telemedicine Endocrinology R[address] [place] [phone] Ramonita Peace PA-C [address] [facility] [place] [address] 10/20/2024 10:20 AM EST Laboratory Laboratory, [address] [place] [phone] [facility], Lab [address] [place], [place] [phone] 10/29/2024 10:00 AM EST Telemedicine Hematology/Oncology, [facility] [address] [place], [place] [phone] Edward Eastman MD [address] [place] [phone] Cart, Telemed [facility] Hem Onc Clinic [address] [place] [address] Scheduled Procedures Name Priority Associated Diagnoses Date/Ti me COLONOSCOPY FLEXIBLE PROXIMA L DIAGNOSTIC Recall Screening for colon cancer Health Maintenance Due Date Last Done Comments DISCUSS TOBACCO CESSATION (REFER TO SMARTSET #3022) 1968 Depression Screening 1980 HIV Screening 1983 [...] 08/11/2025 08/11/2024, 03/26, 04/07/2024, Additional history exists DTap/Tdap [...] this encounter Medical Devices Implanted Type Area Stock Hanger Device Identifier Shelf Expiration Date Model / Serial / Lot Neurostimul Intellis Adaptiv - [id number] - [id number] Implanted:Qty: 1 on 09/28/2022 by Tanner Bruce MD at OR [facility] N/A: Back [employer] 09/06/2023 [id number] / [id number] / Vectris Surescan Mri 1x8 Compact Lead Kit For Scs Implanted:Qty: 1 on 09/28/2022 by Tanner Bruce MD at OR [facility] N/A: Back Medtronic 07/14/2026 [id number] / / [id number] Vectris Surescan Mri 1x8 Compact Lead Kit For Scs Implanted:Qty: 1 on 09/28/2022 by Tanner Bruce MD at OR [facility] N/A: Back Medtronic 08/23/2026 [id number] / / [id number] Envelope Tyrx Lg Antibacterial - [id number] Implanted:Qty: 1 on 09/28/2022 by Tanner Bruce MD at OR [facility] N/A: Back [employer] 12/17/2022 [id number] / / [id number] Sprint Microlead 2.0 With Onepass Introducer Implanted:Qty: 1 on 01/09/2024 by Tanner Bruce MD at OR [facility] 05/03/2025 [id number] / / [id number] documented as of this encounter Procedures Procedure Name Priority Date/Time Associated Diagnosis Comments EKG SCANNED RESULT 08/11/2024 documented in this encounter Results * EKG SCANNED RESULT (08/11/2024) 08/11/2024 us No Physician Data Unknown EKG Final Result documented in this encounter Advance Directives * [...] the patient have Health Care Power of Almond Roaster? Yes, not currently available Care Teams Instrument Mechanics Supervisor Relationship Specialty Start Date End Date Wesley Salguero MD [address] [facility] [address] [facility] [place] [address] PCP - General Family Medicine 11/16/22 documented as of this encounter
[2024-08-25] MEDS: GABAPENTIN 600 MG DOSE PO SCH (06:39)
[2024-08-25] MEDS: ACETAMINOPHEN 500 MG TAB PO SCH (06:39)
[2024-08-25] MEDS: CeleBREX 200 MG CAP PO SCH (06:40)
[2024-08-25] MEDS: LR 60ML/HR IV SCH (06:41)
[2024-08-25] MEDS: LR 15ML/HR IV SCH (06:41)
[2024-08-25] MEDS ORDERED: ONDANSETRON INJ 2 MG/ML 2 ML VIAL IV PRN ×2 (06:49→11:14)
[2024-08-25] MEDS ORDERED: ATROPINE SULFATE 0.1 MG/ML 10ML SYR IV PRN (06:49)
[2024-08-25] MEDS ORDERED: PROMETHAZINE HCL 6.25 MG in SODIUM CHLORIDE 0.9% 50 ML IV PRN (06:49)
[2024-08-25] MEDS ORDERED: ePHEDrine sulfate 50 MG/ML AMP IV PRN (06:49)
[2024-08-25] MEDS ORDERED: ePHEDrine sulfate 50 MG/ML AMP ONE (07:07)
[2024-08-25] MEDS ORDERED: GLYCOPYRROLATE 0.2 MG/ML VIAL ONE (07:07)
[2024-08-25] MEDS ORDERED: ONDANSETRON INJ 2 MG/ML 2 ML VIAL ONE (07:07)
[2024-08-25] MEDS ORDERED: DEXAMETHASONE SOD INJ 4 MG/ML VIAL ONE (07:07)
[2024-08-25] MEDS ORDERED: LIDOCAINE 2% 2 ML VIAL/AMP(20MG/ML) INFIL ONE (07:07)
[2024-08-25] MEDS ORDERED: NEOSTIGMINE METHYLSULFATE 1 MG/ML 10ML VIAL ONE (07:08)
[2024-08-25] MEDS ORDERED: PHENYLEPHRINE HCL 10 MG/ML VIAL ONE (07:08)
[2024-08-25] MEDS ORDERED: PROPOFOL IV EMULSION 10 MG/ML 20 ML VIAL IV ONE (07:08)
[2024-08-25] MEDS ORDERED: ROCURONIUM BROMIDE 10 MG/ML 5 ML VIAL IV ONE (07:08)
[2024-08-25] MEDS ORDERED: fentaNYL citrate PF 100 MCG/2 ML VIAL ONE (07:09)
[2024-08-25] MEDS ORDERED: MIDAZOLAM HCL 1 MG/ML 2ML VIAL ONE (07:09)
--- NOTE | 2024-08-25 07:39 | History & Physical Bridge Note ---
Date of Service August 25, 2024 History & Physical Bridge Note I have examined the patient, reviewed the History & Physical and in the interval since the performance of the History & Physical I have noted the following changes of clinical significance: no changes noted
--- NOTE | 2024-08-25 07:41 | History & Physical Report ---
Date of Service August 25, 2024 Assessment & Plan (1) Cervical stenosis of spinal canal: Plan: Anterior cervical discectomy and fusion C5-C7 History of Present Illness Chief Complaint: Neck and bilateral arm pain Primary Care Provider: Wesley Salguero MD This is a 53-year-old female who presents for chronic persistent neck and arm pain after failing course of nonoperative care she is here for surgical invention. Allergies Allergy/AdvReac Type Severity Reaction Status Date / Time paroxetine [From Paxil] Allergy Severe suicidal Verified 08/25/24 06:24 tendencies codeine Allergy Mild Dizziness Verified 08/25/24 06:24 nickel Allergy Mild Verified 08/25/24 06:25 NSAIDS (Non-Steroidal Allergy Mild hx gastric Verified 08/25/24 06:24 Anti-Inflamma bypass / ulcer Home Medications Medication Instructions Recorded Confirmed Type blood-glucose meter (OneTouch #1 ea 05/19/22 01/05/23 Rx Ultra2 Meter) lancets (OneTouch UltraSoft #100 ea 05/19/22 01/05/23 Rx Lancets) ondansetron 4 mg disintegrating 4 mg PO Q8H PRN nausea and 07/27/22 08/25/24 Rx tablet vomiting #60 tabs blood sugar diagnostic (OneTouch #100 ea 09/08/22 01/05/23 Rx Ultra Test strips) duloxetine 60 mg capsule,delayed 60 mg PO BID #180 caps 11/20/22 08/25/24 Rx release (Cymbalta) aspirin 81 mg tablet,delayed 81 mg PO DAILY 01/02/23 08/25/24 History release (Adult Low Dose Aspirin) cholecalciferol (vitamin D3) 125 1,000 unit PO DAILY 01/04/23 08/25/24 History mcg (5,000 unit) capsule magnesium 200 mg tablet 400 mg PO DAILY PRN muscle cramps 01/05/23 08/25/24 History metronidazole 0.75 % (37.5 mg/5 0.75 g vaginal DAILY PRN vaginosis 01/05/23 08/25/24 History gram) vaginal gel (Vandazole) acetaminophen 500 mg tablet 1,000 mg PO Q6H PRN Pain 08/05/24 08/25/24 History albuterol sulfate 90 mcg/actuation 2 puff inhalation QID PRN Cough 08/05/24 08/25/24 History aerosol inhaler fluticasone 500 mcg-salmeterol 50 2 inh inhalation DAILY PRN sob 08/05/24 08/25/24 History mcg/dose blistr powdr for inhalation (Advair Diskus) levothyroxine 137 mcg tablet 137 mcg PO QAM 08/05/24 08/25/24 History omeprazole 40 mg capsule,delayed 40 mg PO QAM 08/05/24 08/25/24 History release pregabalin 150 mg capsule (Lyrica) 150 mg PO TID 08/05/24 08/25/24 History rosuvastatin 20 mg tablet (Crestor) 20 mg PO UD 08/05/24 08/25/24 History semaglutide 2 mg/dose (8 mg/3 mL) 2 mg subcut WK 08/05/24 08/25/24 History subcutaneous pen injector (Ozempic) Past Med/Surg History Problem List (Updated 08/25/24 @ 07:40 by Jass Huang DO) Cervical stenosis of spinal canal Encounter for pre-operative examination Diabetes Spinal cord stimulator status Positive BONY (antinuclear antibody) Chronic GERD Obesity Atherosclerosis of aorta Sacroiliac joint dysfunction B12 deficiency Ameya's thyroiditis Sensorineural hearing loss (SNHL) of left ear with restricted hearing of right ear Hearing loss PTSD (post-traumatic stress disorder) Fibromyalgia PUD (peptic ulcer disease) Peripheral neuropathy Lumbar back pain with radiculopathy affecting left lower extremity Anxiety (Acute) Gastroesophageal reflux disease (Acute) Claudication in peripheral vascular disease Atherosclerosis of arteries of extremities Urinary incontinence Hypothyroidism Hypercholesterolemia Anemia Medical History (Updated 08/25/24 @ 07:40 by Jass Huang DO) Type 2 diabetes mellitus NIDDM Allergic rhinitis PUD (peptic ulcer disease) Osteoarthritis Hx of osteomyelitis had both pinky toes amputated Hx of deep venous thrombosis (2015) right knee, unknown cause, eliquis x 7 months Anxiety Peripheral neuropathy severe in feet and hands, reason for neurostimulator Lung nodules has annual lung ct History of COVID-19 (08/2023) Sleep apnea "mild" - not enough for cpap MGUS (monoclonal gammopathy of unknown significance) Spinal cord stimulator status (09/2022) due to severe neuropathy in feet Atherosclerosis of aorta Chronic GERD controlled, stable per pt Idiopathic macular telangiectasia type 2 pt. reports slowly losing central vision, has 2 small blind spots Ameya's thyroiditis Branch retinal vein occlusion Common migraine without aura Fibromyalgia Lymphadenopathy Plantar fascial fibromatosis of both feet Tobacco use Parkinsonism pt. denies - pt. states "leftover tics from when i was placed on haldol in 2017" Tourette's syndrome pt denies Depression pt denies History of non anemic vitamin B12 deficiency Hypercholesterolemia Surgical History History of esophagogastroduodenoscopy (EGD) Hx of colonoscopy History of amputation of toe (2018) both small pinky toes due to diabetic ulcers / 2017 / 2018 History of decompression of both ulnar nerves (2008) S/P UVPP (uvulopalatopharyngoplasty) Hx of tonsillectomy History of carpal tunnel release x2 on both wrists S/P cholecystectomy History of appendectomy Status post gastric bypass for obesity (2006) Family History Mother Coronary heart disease Dyslipidemia Social History Smoking Status: Current every day smoker Tobacco Type: Cigarettes Age Started Using Tobacco: 14; packs per day: 1; Cigarettes Per Day: 1 ppd (advised); Second Hand Exposure: No; Do You Dip or Chew Tobacco: No; Tobacco Cessation Education Requested by Patient: No Hx Alcohol Use: Yes Alcohol type: hard liquor Hx Substance Use: Yes Last Used Substance Other:: medical marijuana (advised) Preferred Language: Lithuanian Communication Ability: Effective Watch Assembler Required: No Beliefs That Will Affect Care: None marital status: Legally Current Living Situation: Alone Other Information That Helps Us Care for You: No Feels Safe at Home: Yes Safety Concerns: Feels Safe At This Time Childhood Exposure to Second-Hand Smoke: Yes Seatbelt Use: sometimes Sunscreen Use: Yes Assistive Devices: Denture - Upper, Glasses and Hearing Aid - Bilateral Assistive Devices Comment: no bottom teeth Physical Exam Physical Exam: Patient is alert and oriented heart regular rhythm Lungs clear Results & Data Results & Data Vital Signs (Past 12 Hours) Vital Signs Temp Pulse Resp BP Pulse Ox O2 Del Method 08/25/24 06:28 36.9 C 73 18 125/79 97 Room Air
[2024-08-25] MEDS: ceFAZolin 2000MG 2,000 MG/15 ML SYR IV SCH ×2 (08:00→15:43)
[2024-08-25] MEDS: ceFAZolin 330 MG/ML 1 GM VIAL ONE (09:15)
--- NOTE | 2024-08-25 09:26 | Operative Report ---
Post Operative Report Pre & Post Diagnosis Operation Date: 08/25/24 07:45 Pre-Op Diagnosis: Cervical Spondylosis with Radiculopathy Post-Op Diagnosis: Cervical Spondylosis with Radiculopathy I identified the patient and participated in the time-out.: Yes Procedure Operation Date: 08/25/24 07:45 Actual Procedures #1 anterior cervical discectomy with bilateral foraminotomies C5-C6 C6-C7. #2 anterior cervical arthrodesis C5-C6 C6-C7. #3 placement of titanium interbody cages 7 mm height at C5-C6 and 8 mm height at C6-C7 both filled with os design bone graft. #4 application of cervical plate and screws from C5-C7. Surgeon Jass Huang, DO Production Operator None Estimated Blood Loss 10 Findings See Below The patient is 5 foot 4 weighing over 96 kg with a BMI in excess of 36. The patient's body was did contribute to significant technical difficulty with positioning exposure and the procedure itself. This at least 50% increased operative time. Specimens None Indications This is a 53-year-old female who presents publish diagnosis after failing course of nonoperative care is here for surgical invention. Description of Procedure Patient was met with identified informed consent obtained. Patient was then taken to the operative suite underwent intubation placed in the supine position on the Marty table with a head [place] head well puller. All bony promises well- padded eyes inspected to ensure no external precipice spinal. This point anterior cervical spine was prepped and draped no sterile fashion. The assistance of fluoroscopy identified the C6 vertebral body and a transverse incision was placed along the right anterior aspect of the cervical spine overlying this region. Blunt dissection with assistance of bipolar electrocautery was performed down to expose the anterior cervical spine from C5- C7. A self-retaining retractor was placed. Then formed a complete discectomy of C5-C6 out to the uncovertebral joints bilaterally. [place] distracting pins utilized to assist in visualization. Removed all posterior annular fibers and longitudinal ligament performed bilateral foraminotomies. Endplates burred to subcortical bleeding bone and a 7 mm titanium cage filled with os design bone graft tapped in position. I then proceeded to C6-C7. Again complete discectomy performed out to the uncovertebral notch bilaterally. [place] distracting pins again utilized. Removed all posterior annular fibers longitudinal ligament bilateral foraminotomies were performed. An 8 mm titanium cage filled with os design bone graft tapped in position. Distracting apparatus was removed. All anterior osteophytes burred to smooth cortical surface. Z plate and screws were applied with the assistance of fluoroscopy. The incision was then copiously irrigated explored to ensure no damage to surrounding structures remaining bleeding. 10 round DIANA drain inserted. The incision was then closed with 2 Vicryl in the fashion of 4 Monocryl for final closure. Steri-Strips sterile dressing placed. Patient waken taken PACU stable condition. Please note spinal cord monitoring was utilized at the procedure no changes noted. Im ordering 10 grams of Triple Malone Collagen Powder (Sellvana [id number]) to treat an incision wound that was caused by a spine procedure. The incision is approximately 2 cm(W) x 4 cm(L) into the joint (D) in size and is a full thickness wound. Triple Malone collagen comes in 1 gram packets so 10 packets were ordered. Given the size of the wound, with light to moderate exudate I chose to order a 10 day supply. The patient will be provided instructions for proper application of the collagen wound kit. The patient will be asked to apply the collagen powder daily and then cover it with sterile dressings dispensed. Collagen was selected as I expect the collagen to attract monocytes and fibroblasts, act as a sacrificial s ubstrate for MMPs, and ultimately proved a matrix for tissue and vessel growth. The collagen will act as a primary dressing in this scenario. It is medically necessary for proper healing of these wounds to improve bioavailability and contact with each wound surface, this is also to help prevent infection of wounds and promote healing ultimately leading to a better healing outcome and limit the risk of infection. I attest to the content of the Intraoperative Record and any orders documented therein. Any exceptions are noted below.
[2024-08-25] MEDS: fentaNYL citrate PF 100 MCG/2 ML VIAL IV PRN (09:50)
--- NOTE | 2024-08-25 09:50 | Fluoroscopy Report ---
FL cervical 2-3V CLINICAL HISTORY: C5-C7 ACDF COMPARISON STUDY: None. FLUOROSCOPY TIME: 13 seconds. Ka,r: 2.86 mGy FLUOROSCOPIC IMAGES: 2 FINDINGS: Fluoroscopy was provided during multilevel anterior cervical discectomy and fusion. Exact l ocalization is difficult given partial visualization of the spine however, findings suggest a C5-C7 a nterior discectomy and fusion. Linear radiodensity on the initial images is not present on the subseq uent image. Surgical drain is in place. IMPRESSION: Fluoroscopy provided during anterior cervical spine discectomy and fusion, as described above. ACT 112: Negative or not required by law. Electronically signed by: Richard Carty M.D. 08/25/2024 9:49 AM
[2024-08-25] MEDS: HYDROmorphone INJ 1 MG/ML SYRINGE IV PRN (10:22)
[2024-08-25] MEDS ORDERED: LIDOCAINE 2% 20 MG/ML 5 ML SYR IV ONE (10:25)
[2024-08-25] MEDS ORDERED: traMADol HCL 50 MG TABLET PO PRN (11:14)
[2024-08-25] MEDS ORDERED: PHARMACY GLYCEMIC MGMT CONSULT PRN (11:14)
[2024-08-25] MEDS ORDERED: DO NOT ADMINISTER FLU VACCINE PRN (11:14)
[2024-08-25] MEDS ORDERED: DO NOT ADMINISTER PNEUMOCOCCAL VACCINE PRN (11:14)
[2024-08-25] MEDS ORDERED: HYDROmorphone INJ 0.5 MG/0.5 ML SYR IV PRN (11:14)
[2024-08-25] MEDS ORDERED: MAGNESIUM HYDROXIDE SUSP 30 ML UDC PO PRN (11:14)
[2024-08-25] MEDS ORDERED: LORazepam 2 MG/1 ML VIAL IV PRN (11:14)
[2024-08-25] MEDS ORDERED: diphenhydrAMINE Capsule 25 MG CAP PO PRN (11:14)
[2024-08-25] MEDS ORDERED: SOD PHOSPHATE/SOD BIPHOSPHATE ENEMA 132 ML BTL PR PRN (11:14)
[2024-08-25] MEDS ORDERED: LORazepam 0.5 MG TAB PO PRN (11:14)
[2024-08-25] MEDS ORDERED: ALBUTEROL HFA 8 GM INHALER INH PRN (11:14)
[2024-08-25] MEDS ORDERED: ACETAMINOPHEN 1,000 MG/100 ML VIAL IV PRN (11:14)
[2024-08-25] MEDS ORDERED: HYDROmorphone INJ 1 MG/ML SYRINGE IV PRN (11:14)
[2024-08-25] MEDS ORDERED: FAMOTIDINE 20 MG TAB PO PRN (11:14)
[2024-08-25] MEDS ORDERED: ACETAMINOPHEN 500 MG TAB PO PRN ×2 (11:14)
[2024-08-25] MEDS ORDERED: dexAMETHasone 8 MG in SYRINGE 0 ML IV PRN (11:14)
[2024-08-25] MEDS ORDERED: RACEPINEPHRINE 2.25% NEBU SOLN 0.5 ML VIAL INH PRN (11:14)
[2024-08-25] MEDS ORDERED: ALUMINUM/MAGNESIUM SUSP 30 ML UDC PO PRN (11:14)
[2024-08-25] MEDS ORDERED: METOCLOPRAMIDE HCL INJ 5 MG/ML 2 ML VIAL IV PRN (11:14)
[2024-08-25] MEDS ORDERED: PROMETHAZINE 12.5 MG/50.5 ML BAG IV PRN (11:14)
[2024-08-25] MEDS ORDERED: NALOXONE HCL 0.4 MG/1 ML VIAL/CARP IV PRN (11:14)
[2024-08-25] MEDS ORDERED: hydrOXYzine HCl 25 MG TAB PO PRN (11:14)
[2024-08-25] MEDS ORDERED: ONDANSETRON 4 MG OD TAB PO PRN (11:14)
[2024-08-25] MEDS ORDERED: bisacodyL 10 MG SUPP PR PRN (11:14)
[2024-08-25] MEDS ORDERED: FLUTICASONE/VILANTEROL 200/25MCG 14 PUFFS/INHALER INH PRN (11:34)
[2024-08-25] MEDS ORDERED: MAGNESIUM OXIDE 400 MG TAB PO PRN (11:35)
[2024-08-25] MEDS ORDERED: GLUCOSE 10 TAB/TUBE PO PRN (11:45)
[2024-08-25] MEDS ORDERED: GLUCAGON FOR INJ 1 MG VIAL SQ PRN (11:45)
[2024-08-25] MEDS ORDERED: CARBOHYDRATES FOR HYPOGLYCEMIA PO PRN (11:45)
[2024-08-25] MEDS ORDERED: DEXTROSE 50% 50 ML SYRINGE IV PRN (11:45)
[2024-08-25] MEDS ORDERED: GLUCOSE 40% GEL 15 GM TUBE PO PRN (11:45)
--- NOTE | 2024-08-25 11:54 | Consultation ---
<Statement entered by Drew Montero DO - 08/25/24 13:01> I have seen and examined the patient and have discussed the case with the provider above. I have reviewed the advanced practitioner's documentation, and I agree with, and take responsibility for that plan of care. Patient seen postoperatively. Reports pain is controlled. Tolerated liquid diet. I reviewed plans for managing her diabetes here in the hospital, patient is agreeable. Plan of care as outlined below Date of Consultation August 25, 2024 Assessment & Plan (1) Cervical stenosis of spinal canal: (2) PTSD (post-traumatic stress disorder): (3) Fibromyalgia: (4) PUD (peptic ulcer disease): (5) Anxiety: (6) Gastroesophageal reflux disease: (7) Hypothyroidism: (8) Hypercholesterolemia: (9) S/P cervical discectomy: Plan Assessment and plan: Cervical spinal stenosis S/p C5-C7 anterior cervical discectomy/fusion 08/25 Cervical brace/drain remains in place, pain control PT/OT/DVT prophylaxis per primary team Hx DM2: Takes Ozempic at home, glycemic pharmacy consult, sugars acceptable Hx hypothyroidism: Continue Synthroid Hx fibromyalgia/PTSD: Continue duloxetine/Lyrica Hx PUD/GERD: Continue omeprazole Total 45 minutes was spent on chart review/facilitation of plan of care/reviewing diagnostic data/discussion with consultants Full code DVT prophylaxis: Per primary team History of Present Illness Requesting Physician: Jass Huang DO Reason for Consultation: Cervical neck pain Attending Physician: Jass Huang DO History of Present Illness The patient is a 53-year-old female with a past medical history of cervical stenosis, diabetes, GERD, obesity, B12 deficiency, PTSD, fibromyalgia, PUD, GERD, peripheral vascular disease, hypothyroidism, HLD who presents to the hospital today s/p C5-C7 anterior cervical discectomy and fusion, spinal cord monitoring performed by Dr. Huang. We are asked to see the patient for postoperative medical management. On exam, the patient is sitting up, reports her pain is controlled, anxious to eat breakfast. She denies any chest pain/fever/chills/shortness of breath/abdominal pain. She denies any/tingling to her bilateral lower extremities. Denies any weakness to her upper extremities. Reports being on Ozempic at home for diabetes and sugars being fairly controlled. We will continue to follow for med management Allergies Allergy/AdvReac Type Severity Reaction Status Date / Time paroxetine [From Paxil] Allergy Severe suicidal Verified 08/25/24 06:24 tendencies codeine Allergy Mild Dizziness Verified 08/25/24 06:24 nickel Allergy Mild Verified 08/25/24 06:25 NSAIDS (Non-Steroidal Allergy Mild hx gastric Verified 08/25/24 06:24 Anti-Inflamma bypass / ulcer Home Medications Medication Instructions Recorded Confirmed Type blood-glucose meter (OneTouch #1 ea 05/19/22 01/05/23 Rx Ultra2 Meter) lancets (OneTouch UltraSoft #100 ea 05/19/22 01/05/23 Rx Lancets) ondansetron 4 mg disintegrating 4 mg PO Q8H PRN nausea and 07/27/22 08/25/24 Rx tablet vomiting #60 tabs blood sugar diagnostic (OneTouch #100 ea 09/08/22 01/05/23 Rx Ultra Test strips) duloxetine 60 mg capsule,delayed 60 mg PO BID #180 caps 11/20/22 08/25/24 Rx release (Cymbalta) aspirin 81 mg tablet,delayed 81 mg PO DAILY 01/02/23 08/25/24 History release (Adult Low Dose Aspirin) cholecalciferol (vitamin D3) 125 1,000 unit PO DAILY 01/04/23 08/25/24 History mcg (5,000 unit) capsule magnesium 200 mg tablet 400 mg PO DAILY PRN muscle cramps 01/05/23 08/25/24 History metronidazole 0.75 % (37.5 mg/5 0.75 g vaginal DAILY PRN vaginosis 01/05/23 08/25/24 History gram) vaginal gel (Vandazole) acetaminophen 500 mg tablet 1,000 mg PO Q6H PRN Pain 08/05/24 08/25/24 History albuterol sulfate 90 mcg/actuation 2 puff inhalation QID PRN Cough 08/05/24 08/25/24 History aerosol inhaler fluticasone 500 mcg-salmeterol 50 2 inh inhalation DAILY PRN sob 08/05/24 08/25/24 History mcg/dose blistr powdr for inhalation (Advair Diskus) levothyroxine 137 mcg tablet 137 mcg PO QAM 08/05/24 08/25/24 History omeprazole 40 mg capsule,delayed 40 mg PO QAM 08/05/24 08/25/24 History release pregabalin 150 mg capsule (Lyrica) 150 mg PO TID 08/05/24 08/25/24 History rosuvastatin 20 mg tablet (Crestor) 20 mg PO UD 08/05/24 08/25/24 History semaglutide 2 mg/dose (8 mg/3 mL) 2 mg subcut WK 08/05/24 08/25/24 History subcutaneous pen injector (Ozempic) Patient History Medical History (Updated 08/25/24 @ 07:40 by Jass Huang DO) Type 2 diabetes mellitus NIDDM Allergic rhinitis PUD (peptic ulcer disease) Osteoarthritis Hx of osteomyelitis had both pinky toes amputated Hx of deep venous thrombosis (2014) right knee, unknown cause, eliquis x 7 months Anxiety Peripheral neuropathy severe in feet and hands, reason for neurostimulator Lung nodules has annual lung ct History of COVID-19 (08/2023) Sleep apnea "mild" - not enough for cpap MGUS (monoclonal gammopathy of unknown significance) Spinal cord stimulator status (09/2022) due to severe neuropathy in feet Atherosclerosis of aorta Chronic GERD controlled, stable per pt Idiopathic macular telangiectasia type 2 pt. reports slowly losing central vision, has 2 small blind spots Ameya's thyroiditis Branch retinal vein occlusion Common migraine without aura Fibromyalgia Lymphadenopathy Plantar fascial fibromatosis of both feet Tobacco use Parkinsonism pt. denies - pt. states "leftover tics from when i was placed on haldol in 2017" Tourette's syndrome pt denies Depression pt denies History of non anemic vitamin B12 deficiency Hypercholesterolemia Surgical History (Updated 08/25/24 @ 11:50 by JUVENTINO Garcia) History of esophagogastroduodenoscopy (EGD) Hx of colonoscopy History of amputation of toe (2018) both small pinky toes due to diabetic ulcers / 2017 / 2018 History of decompression of both ulnar nerves (2008) S/P UVPP (uvulopalatopharyngoplasty) Hx of tonsillectomy History of carpal tunnel release x2 on both wrists S/P cholecystectomy History of appendectomy Status post gastric bypass for obesity (2006) Family History Mother Coronary heart disease Dyslipidemia Social History Smoking Status: Current every day smoker Tobacco Type: Cigarettes Age Started Using Tobacco: 14; packs per day: 1; Cigarettes Per Day: 1 ppd (advised); Second Hand Exposure: No; Do You Dip or Chew Tobacco: No; Tobacco Cessation Education Requested by Patient: No Hx Alcohol Use: Yes Alcohol type: hard liquor Hx Substance Use: Yes Last Used Substance Other:: medical marijuana (advised) Preferred Language: Telugu Communication Ability: Effective Supervisor Electronics Testing Required: No Beliefs That Will Affect Care: None marital status: Legally Current Living Situation: Alone Other Information That Helps Us Care for You: No Feels Safe at Home: Yes Safety Concerns: Feels Safe At This Time Childhood Exposure to Second-Hand Smoke: Yes Seatbelt Use: sometimes Sunscreen Use: Yes Assistive Devices: Denture - Upper, Glasses and Hearing Aid - Bilateral Assistive Devices Comment: no bottom teeth Review of Systems Review of Systems: All systems reviewed & are unremarkable except as noted in HPI & below Physical Exam Constitutional: WD/WN, vitals as above Eyes: PERRL, conjunctivae normal, anicteric sclerae ENMT: external ear and nose normal, oropharynx normal Neck: trachea midline, no thyromegaly trachea midline Respiratory: normal respiratory effort, lungs clear to auscultation Cardiovascular: RRR, no murmur, no edema Gastrointestinal (Abdomen): normal bowel sounds, soft, nontender, no hepatosplenomegaly Musculoskeletal: no cyanosis or clubbing, extremities motor strength 5/5 (Cervical brace and drain in place) Skin: no rashes, warm and dry Neurologic: PERRL, EOMI, accommodation nl, no face palsy, no dysarthria Psychiatric: A+Ox3, euthymic affect Lymphatic: no cervical or axillary lymphadenopathy Results & Data Vital Signs (Past 12 Hours) Vital Signs Temp Pulse Pulse Resp BP Pulse Ox Pulse Ox 08/25/24 11:15 08/25/24 11:15 36.5 C 84 16 116/72 96 08/25/24 11:15 96 08/25/24 10:55 69 22 128/70 94 08/25/24 10:45 78 12 126/86 94 08/25/24 10:35 36.8 C 79 19 113/72 94 08/25/24 10:25 82 15 139/73 96 08/25/24 10:15 68 14 136/77 93 08/25/24 10:05 68 15 122/93 95 08/25/24 09:55 67 17 136/73 92 08/25/24 09:45 65 16 130/79 93 08/25/24 09:36 36.0 C L 61 21 144/75 H 96 08/25/24 06:28 36.9 C 73 18 125/79 97 O2 Del Method O2 Del Method O2 Flow Rate O2 Flow Rate 08/25/24 11:15 Nasal Cannula 2 08/25/24 11:15 Nasal Cannula 2 08/25/24 11:15 Nasal Cannula 2 08/25/24 10:55 Nasal Cannula 2 08/25/24 10:45 Nasal Cannula 2 08/25/24 10:35 Nasal Cannula 2 08/25/24 10:25 Nasal Cannula 2 08/25/24 10:15 Nasal Cannula 2 08/25/24 10:05 Nasal Cannula 2 08/25/24 09:55 Nasal Cannula 2 08/25/24 09:45 Nasal Cannula 2 08/25/24 09:36 Nasal Cannula 2 08/25/24 06:28 Room Air Diagnostic Findings Laboratory Results POC Glucose 153 mg/dl (70-99) H 08/25/24 11:22 Impressions Cervical Spine X-Ray 08/25/24 07:45 FL cervical 2-3V CLINICAL HISTORY: C5-C7 ACDF COMPARISON STUDY: None. FLUOROSCOPY TIME: 13 seconds. Ka,r: 2.86 mGy FLUOROSCOPIC IMAGES: 2 FINDINGS: Fluoroscopy was provided during multilevel anterior cervical discectomy and fusion. Exact localization is difficult given partial visualization of the spine however, findings suggest a C5-C7 anterior discectomy and fusion. Linear radiodensity on the initial images is not present on the subsequent image. Surgical drain is in place. IMPRESSION: Fluoroscopy provided during anterior cervical spine discectomy and fusion, as described above. ACT 112: Negative or not required by law. Electronically signed by: Richard Carty M.D. 08/25/2024 9:49 AM
[2024-08-25] MEDS: INSULIN ASPART PER UNIT CHARGE SC SCH (12:04)
[2024-08-25] MEDS: ROSUVASTATIN CALCIUM 20 MG TAB PO SCH (12:05)
--- NOTE | 2024-08-25 13:20 | Pharmacy Report ---
Pharmacy Glycemic Short Note 2 - Date of Service August 25, 2024 - Glycemic Short BSG Results (Last 24 hours): 08/25/24 08/25/24 08/25/24 06:13 09:43 11:22 POC Glucose 112 H 133 H 153 H OUTPATIENT ANTIDIABETIC REGIMEN: * Ozempic 2mg SQ weekly HbA1c 6.2% on 08/11/24 ASSESSMENT: * 53 year old female admitted for discectomy and fusion with Dr. Huang (POD#0) Pharmacy was consulted postop for glycemic management. * Preop BSG was 112mg/dL. 8mg iv dexamethasone x 1 was given preop; and post op BSG was 153mg/dL. Her blood sugar has been well controlled on Ozempic alone outpatient so basal insulin will not be started now. * Weight based dosing of bolus insulin using adjusted body weight with a stress between 2 and 3 has been started with lunch today. * Overnight BSG checks have been added for tonight to ensure BSG does not continue to rise in the presence of steroids. PLAN FOR INPATIENT GLYCEMIC CONTROL: * Hold outpatient diabetes medications * Bolus insulin * NovoLog per scale ACHS or Q6hrs while NPO * Goal Range: Low 110 mg/dL - High 140 mg/dL * Correction Factor: 25 mg/dL/unit * Nutritional / Prandial insulin per carb ratio of 1 unit per 7 grams CHO consumed
[2024-08-25] MEDS ORDERED: Nursing to Pharmacy Communication SCH (13:30)
[2024-08-25] MEDS ORDERED: PREGABALIN 150 MG CAP PO SCH (14:00)
[2024-08-25] MEDS: oxyCODONE HCL IR 5 MG TAB (IMMEDIATE RELEASE) PO PRN (14:19)
--- NOTE | 2024-08-25 14:40 | Anesthesiology Progress Note ---
Date of Service August 25, 2024 Anesthesia Post Procedure Vital Signs Vital Signs: Temp Pulse Pulse Resp BP Pulse Ox Pulse Ox 08/25/24 14:16 36.5 C 84 18 118/72 95 08/25/24 13:15 36.5 C 85 18 107/69 96 08/25/24 12:15 36.6 C 73 16 120/76 94 08/25/24 11:45 36.5 C 75 18 124/79 96 08/25/24 11:15 08/25/24 11:15 36.5 C 84 16 116/72 96 08/25/24 11:15 96 08/25/24 11:14 72 16 95 08/25/24 10:55 69 22 128/70 94 08/25/24 10:45 78 12 126/86 94 08/25/24 10:35 36.8 C 79 19 113/72 94 08/25/24 10:25 82 15 139/73 96 08/25/24 10:15 68 14 136/77 93 08/25/24 10:05 68 15 122/93 95 08/25/24 09:55 67 17 136/73 92 08/25/24 09:45 65 16 130/79 93 08/25/24 09:36 36.0 C L 61 21 144/75 H 96 08/25/24 06:28 36.9 C 73 18 125/79 97 O2 Del Method O2 Del Method O2 Flow Rate O2 Flow Rate 08/25/24 14:16 Room Air 08/25/24 13:15 Nasal Cannula 1 08/25/24 12:15 Nasal Cannula 1 08/25/24 11:45 Nasal Cannula 1 08/25/24 11:15 Nasal Cannula 2 08/25/24 11:15 Nasal Cannula 2 08/25/24 11:15 Nasal Cannula 2 08/25/24 11:14 Nasal Cannula 2 08/25/24 10:55 Nasal Cannula 2 08/25/24 10:45 Nasal Cannula 2 08/25/24 10:35 Nasal Cannula 2 08/25/24 10:25 Nasal Cannula 2 08/25/24 10:15 Nasal Cannula 2 08/25/24 10:05 Nasal Cannula 2 08/25/24 09:55 Nasal Cannula 2 08/25/24 09:45 Nasal Cannula 2 08/25/24 09:36 Nasal Cannula 2 12/02/24 06:28 Room Air Pain Intensity Back: Pain Intensity: 3 Bilateral Foot: Pain Intensity: 5 Neck: Pain Intensity: 4 Transfer of Care Handoff Completed per policy Notes Mental Status: alert / awake / arousable and participated in evaluation Patient Amnestic to Procedure: Yes Nausea / Vomiting: adequately controlled Pain: adequately controlled Airway Patency, RR, SpO2: stable & adequate BP & HR: stable & adequate Hydration State: stable & adequate Anesthetic Complications: no major complications apparent and Pt Satisfied with anesthetic care
[2024-08-25] MEDS: NICOTINE 14 MG/24 HR PATCH TD SCH (16:55)
[2024-08-25] MEDS ORDERED: DULoxetine HCL 60 MG CAP PO SCH ×2 (19:30→21:00)
[2024-08-25] MEDS: PREGABALIN 150 MG CAP PO SCH (19:34)
[2024-08-25] MEDS: DULoxetine HCL 60 MG CAP PO ONE (20:24)
[2024-08-25] MEDS: DOCUSATE SODIUM/SENNA 50/8.6MG TAB PO SCH (20:24)
[2024-08-26] MEDS ORDERED: INSULIN ASPART PER UNIT CHARGE SC SCH
[2024-08-26] MEDS: DULoxetine HCL 60 MG CAP PO SCH (02:57)
[2024-08-26] MEDS: INSULIN ASPART PER UNIT CHARGE SC SCH (03:01)
[2024-08-26] MEDS: LEVOTHYROXINE SODIUM 137 MCG TABLET PO SCH (03:57)
[2024-08-26] MEDS: POLYETHYLENE (MIRALAX) 17 GM PACK PO SCH (06:01)
[2024-08-26] MEDS: dexAMETHasone 6 MG in SYRINGE 0 ML IV SCH (08:10)
[2024-08-26 08:28] LABS: Albumin Globulin Ratio 1.4 (0.9-2); Albumin Level 4.2 gm/dl (3.4-5.0); BUN Creatinine Ratio 9.9 (10-20); Bilirubin,Total 0.4 mg/dl (0.2-1.0); Calcium 9.3 mg/dl (8.6-10.3); Creatinine Clr Calc Pharmacy 100.9 ml/min; Globulin 3.1 gm/dl (2.5-4.0); Potassium 3.9 mmol/L (3.5-5.1); Total Protein 7.3 gm/dl (6.0-8.3)
[2024-08-26] MEDS ORDERED: NICOTINE 14 MG/24 HR PATCH TD SCH (09:00)
[2024-08-26] MEDS: CHOLECALCIFEROL 25 MCG (1000 UNITS) TAB PO SCH (09:44)
[2024-08-26] MEDS: PANTOprazole 40 MG TAB PO SCH (09:44)
[2024-08-26] MEDS: ASPIRIN 81 MG ECTAB PO SCH (09:45)
[2024-08-26 10:07] LABS: Hematocrit (blood only) 42.7 % (37.0-47.0); Hemoglobin 14.3 g/dl (12.0-16.0); Mean Corpuscular Hemoglobin 31.6 pg (25.0-34.0); Mean Corpuscular Hgb Conc 33.5 g/dL (32.0-36.0); Mean Corpuscular Volume 94.3 fL (80.0-100.0); Mean Platelet Volume 10.8 fL (9.4-12.4); Platelet Count 239 K/uL (130-400); RDW Coefficient of Variation 13.8 % (11.5-14.5); RDW Standard Deviation 48.1 fL (36.4-46.3); Red Blood Count 4.53 M/uL (4.20-5.40)
[2024-08-26 10:08] LABS: Basophils # (auto) 0.03 K/uL (0.00-0.20); Basophils % (auto) 0.2 %; Eosinophils # (auto) 0.03 K/uL (0.00-0.50); Eosinophils % (auto) 0.2 %; Immature Granulocytes # (auto) 0.05 K/uL (0.01-0.20); Immature Granulocytes % (auto) 0.4 %; Lymphocytes # (auto) 3.34 K/uL (1.20-3.40); Lymphocytes % (auto) 25.9 %; Monocytes # (auto) 1.01 K/uL (0.11-0.59); Monocytes % (auto) 7.8 %; Neutrophils # (auto) 8.44 K/uL (1.40-6.50); Neutrophils % (auto) 65.5 %
--- NOTE | 2024-08-26 10:23 | Discharge Summary ---
Date of Service August 26, 2024 Admission HPI Per Admitting Provider This is a 53-year-old female who presents for chronic persistent neck and arm pain after failing course of nonoperative care she is here for surgical invention. Principal Diagnosis Cervical spinal stenosis with radiculopathy Discharge Data Allergies Allergy/AdvReac Type Severity Reaction Status Date / Time paroxetine [From Paxil] Allergy Severe suicidal Verified 08/25/24 06:24 tendencies codeine Allergy Mild Dizziness Verified 08/25/24 06:24 nickel Allergy Mild Verified 08/25/24 06:25 NSAIDS (Non-Steroidal Allergy Mild hx gastric Verified 08/25/24 06:24 Anti-Inflamma bypass / ulcer Consultations 08/25/24 11:14 Consult Hospitalist Routine Procedures Performed Operation Date: 08/25/24 07:45 Actual Procedures p C5-C7 Anterior Cervical Discectomy and Fusion, Spinal Cord Monitoring(Not Applicable) - Jass Huang DO Ordered Studies 08/25/24 07:45 FL cervical 2-3V Routine Hospital Course (1) Cervical stenosis of spinal canal: Patient underwent anterior cervical discectomy and fusion tolerated this well was taken to orthopedic for postoperative. Postoperative she was swallowing well. No hoarseness. Arm symptoms markedly improved. Excellent strength testing. DIANA drain decreasing prophy. Subsidy discharged home. Discharge orders instructions from chart for further review. Total Time Total Time Spent Total Time Spent (In Minutes): 20 minutes Discharge Plan Discharge Items Patient Disposition: Home - Self-Care Reason For Visit: Cervical Spondylosis with Radiculopathy Discharge Diagnosis: Cervical spinal stenosis with radiculopathy Activity: As commented below Non-emergency contact: Primary Care Provider Call non-emergency contact if: you have any medication questions Follow-up/Referrals: Welsey Salguero MD [Primary Care Provider] - Diet: Regular Addtl Attending Provider Instructions: ACTIVITY RECOMMENDATIONS: SELF CARE INSTRUCTIONS AFTER CERVICAL FUSIONS 1. No smoking. Smoking drastically decreases the chance of a solid fusion. 2. No bending, lifting more than 5 pounds, or twisting (roll like a log when turning in bed). 3. You may shower 3 days after surgery. Thoroughly dry wound. Do not soak in the tub. 4. Cervical collar: Must be worn at all times including sleeping. You may remove the brace only to bath, eat and if you are sitting in a recliner. 5. Please walk as much as you can for exercise. Gradually increase the distance that you walk as your endurance increases. 6. You may return to previous diet. SPECIAL CARE INSTRUCTIONS: VERY IMPORTANT TO READ AND REVIEW A. Do not take any anti-inflammatory medications (i.e. Indocin, Advil, Aspirin, Naprosyn, Aleve, Motrin, etc.) as these may inhibit the chance of a solid fusion. Tylenol is okay to take. B. Your surgical incision has been closed with a cosmetic suture under the skin that will dissolve in about 6 weeks. In 14 days, you can use a pair of clean scissors and cut the suture that is left outside of the skin at the ends of your incision. C. Complications are uncommon, but please contact us if you have any signs or symptoms of: 1. wound infection (fever higher than 102.5 degrees F, redness, separation of wound, drainage, or increasing pain from the incision) 2. blood clots in legs (pain, swelling, redness and warmth in legs) 3. urinary tract infection (fever higher than 102.5 degrees, burning upon urination or increased frequency of urination) 4. nerve problems (inability to walk on your toes or heels, numbness, loss of bowel or bladder control) 5. any other symptoms that concern you. D. Please call the office at if you have any concerns or questions about your operation or recovery. MANAGING PAIN AFTER SPINAL SURGERY 1. Narcotic medication is intended for short-term use and will be provided for surgical pain. Surgical pain usually lasts for a period of 4-6 weeks. Narcotic medication includes Percocet, Vicodin, Darvocet, Tylenol #3 or Lortab. 2. Longer-term pain is more appropriately treated with non-narcotic medication such as Tylenol ES. 3. Muscle spasm is not appropriately treated with narcotics. Muscle relaxers such as Soma, Flexeril or Skelaxin can be used along with Tylenol ES. 4. Remember that we all live with some "aches and pains". This is not unusual or uncommon after an injury or as we get older. 5. We will provide appropriate medication within the normal guidelines of their prescribed use. We will also be very cautious and aware of potential abuse and extended duration of patients' medication needs. 6. Please allow 2-3 days to process refills. Prescriptions will not be mailed but must be picked up at the office. FOLLOW UP VISIT: Keep your scheduled follow-up appointment. Any questions, please call the office at . Pending Studies at Discharge: No Stand-Alone Forms: My [facility], Smoking Cessation Medications and DC Order Prescriptions: New tramadol 50 mg tablet 50 mg PO Q6H PRN (Reason: pain, moderate) Qty: 20 0RF oxycodone 5 mg tablet 5 mg PO Q6H PRN (Reason: pain) Qty: 30 0RF Continued (DME) blood-glucose meter [OneTouch Ultra2 Meter] Misc See Rx Instructions .Route Qty: 1 0RF Rx Instructions: As directed (DME) lancets [OneTouch UltraSoft Lancets] Mis See Rx Instructions .Route Qty: 100 1RF Rx Instructions: TEST BS ONCE DAILY ondansetron 4 mg tablet,disintegrating 4 mg PO Q8H PRN (Reason: nausea and vomiting) Qty: 60 0RF (DME) OneTouch Ultra Test Strip See Rx Instructions .Route Qty: 100 0RF Rx Instructions: Test BS once daily duloxetine [Cymbalta] 60 mg capsule,delayed release(DR/EC) 60 mg PO BID Qty: 180 1RF cholecalciferol (vitamin D3) 125 mcg (5,000 unit) capsule 1,000 unit PO DAILY aspirin [Adult Low Dose Aspirin] 81 mg tablet,delayed release (DR/EC) 81 mg PO DAILY metronidazole [Vandazole] 0.75 % (37.5mg/5 gram) gel 0.75 g vaginal DAILY PRN (Reason: vaginosis) magnesium 200 mg tablet 400 mg PO DAILY PRN (Reason: muscle cramps) levothyroxine 137 mcg Tablet 137 mcg PO QAM acetaminophen 500 mg Tablet 1,000 mg PO Q6H PRN (Reason: Pain) Ozempic 2 mg/dose (8 mg/3 mL) Pen Injector 2 mg SUBCUT WK omeprazole 40 mg capsule,delayed release(DR/EC) 40 mg PO QAM rosuvastatin [Crestor] 20 mg tablet 20 mg PO UD Rx Instructions: sun - sun - sun pregabalin [Lyrica] 150 mg capsule 150 mg PO TID Rx Instructions: TAKE 1 CAPSULE BY MOUTH THREE TIMES A DAY albuterol sulfate 90 mcg/actuation HFA aerosol inhaler 2 puff INHALATION QID PRN (Reason: Cough) fluticasone propion-salmeterol [Advair Diskus] 500-50 mcg/dose blister with device 2 inh INHALATION DAILY PRN (Reason: sob) Discharge Orders: Discharge Order (Routine); Ordered 08/26/24 Ordered By: Jass Huang Admission Data Admit Date/Time: 08/25/24 09:29 Attending Provider: Jass Huang Admit Provider: Jass Huang Primary Care Provider: Wesley Salguero I. Other Providers: Nadia Norris Other Interventions: Discharge Summary Assessment (RN) Last Done: 08/26/24 09:46
[2024-08-26 10:42] VITALS: BP 120/73; TEMP 98.2
[2024-08-26 10:50] VITALS: PULSE 65; RESP 16; O2SAT 96
--- NOTE | 2024-08-26 23:57 | Communication Note ---
Date of Service: August 26, 2024 Pt was discharged before she was evaluated by the hospitalist service today.
[2024-08-27 07:54] LABS: Toxic Vacuolation 2+
--- OUTSIDE RECORDS SUMMARY | 2024-08-27 21:37 | External Medical Summary | Summary of Care ---
Author Name Unknown Organization [facility] Address [address] [place] [address] Phone [phone] Care Team Providers Care Health Services Information Specialist Name Role Phone Wesley Salguero MD Primary Care Provider Reason for Visit * Reason Comments eRx-Medication Refill Encounter Details Date Type Department Care Team (Late st Contact Info) Description 08/26/2024 Refill Endocrinology, [place] [address], [place] [id number] Ramonita Peace PA-C [address] [place] [address] Allergies Active Allergy Reactions Criticality Noted Date Comments Codeine Itching,Other (Pleas e comment) 06/17/2016 "dizzy" Nickel 01/15/2023 Earrings - infection Nsaids Other (Please comment) 06/17/2016 Avoid d/t hx gastric bypass Paroxetine Hydrochloride Psych complications Medium 06/02/2010 documented as of this encounter (statuses as of 08/26/2024) Medications Polyethylene Glycol 3350 17 GM/SCOOP Oral Powder (Miralax)Indicati ons:Chronic constipation Take 17 g by mouth in [...] antibiotics. 70 g 2 3 Active Nystatin 920682 UNIT/GM External Powder (Nystop)Indicatio ns:Intertrigo Apply topically to affected area 3 times [...] Active Benzonatate 100 MG Oral Capsule (Tessalon Perles)Indication s:Bronchitis, complicated TAKE 1 CAPSULE BY MOUTH THREE TIMES A DAY NEEDED FOR COUGH 30 Capsule 1 3 Active Fluticasone-Salme terol 500-50 MCG/ACT Inhalation Aerosol Powder Breath Activated (Advair Diskus)Indication s:Asthma with severity to be determined INHALE 1 PUFF BY MOUTH IN THE MORNING AND BEFORE BEDTIME 180 Each 2 4 Active Famotidine 20 MG Oral Tablet (Pepcid) Take one tablet by mouth early afternoon and at bedtime 180 Tablet 3 4 Active Albuterol Sulfate HFA 108 (90 Base) MCG/ACT Inhalation Aerosol SolutionIndicatio ns:Bronchitis, complicated INHALE 2 PUFFS BY MOUTH 4 TIMES A DAY NEEDED FOR COUGH, SHORTNESS OF BREATH OR WHEEZING. 18 g 2 4 Active DULoxetine HCl 60 MG Oral Capsule Delayed Release Particles (Cymbalta)Indicat ions:Spinal stenosis of lumbar region with neurogenic claudication Take 1 Capsule by mouth in the morning and 1 Capsule before bedtime. 180 Capsule 2 4 Active tiZANidine HCl 4 MG Oral Tablet (Zanaflex)Indicat ions:Cervical radicular pain,Cervical myofascial pain syndrome TAKE 1 TABLET BY MOUTH EVERY 8 HOURS NEEDED FOR MUSCLE SPASM 90 Tablet 2 4 Active Omeprazole 40 MG Oral Capsule Delayed Release (PriLOSEC)Indicat ions:Gastroesopha geal reflux disease without esophagitis Take 1 Capsule by mouth in the morning. 90 Capsule 1 4 Active Aspirin 81 MG Oral Tablet Delayed Release (Aspirin 81)Indications:Hi story of DVT (deep vein thrombosis) Take 1 Tablet by mouth in the morning. 90 Tablet 1 4 Active Rosuvastatin Calcium 20 MG Oral Tablet (Crestor)Indicati ons:Mixed dyslipidemia TAKE 1 TAB BY MOUTH ONCE A DAY ON SUNDAY, SUNDAY, AND SUNDAY ONLY. 39 Tablet 1 4 Active Pregabalin 150 MG Oral Capsule (Lyrica)Indicatio ns:Spinal stenosis of lumbar region with neurogenic claudication TAKE 1 CAPSULE BY MOUTH EVERY DAY IN THE MORNING , AT NOON, AND BEFORE BEDTIME 90 Capsule 2 4 Active Levothyroxine Sodium 150 MCG Oral Tablet (Levoxyl) Take 1 Tablet by mouth daily first thing in the morning. (at least 30 min prior to breakfast or other meds) 90 Tablet 11 4 Active Mounjaro 2.5 MG/0.5ML Subcutaneous Solution Auto-injector (Tirzepatide) Inject 2.5 mg under the skin once a week. 2 mL 1 4 08/22/20 25 Active documented as of this encounter (statuses as of 08/26/2024) Active Problems Problem Noted Date Diagnosed Date [...] of less than 7.0% 07/08/2009 [facility]EARCH OTHER*[id number] 01/22/2007 Peripheral nerve disease 09/24/2002 Tobacco use documented as of this encounter (statuses as of 08/26/2024) Resolved Problems Problem Noted Date Diagnosed Date [...] as of this encounter (statuses as of 08/26/2024) Immunizations Name Administration Dates Next Due COVID-19 mRNA, LNP-s, No Pre serve, 2-Dose Series ([employer]) 07/06/2021,11/29/2020,11/01/2020 COVID-19, mRNA, LNP-s, PF, B ooster, 100mcg/0.5mg (Moderna) 01/18/2022 Covid-19, Mrna, Lnp-s, Pf, B ivalent, 30 Mcg, IM, 12 yrs and above (Pfizer) 06/12/2022 Pneumococcal Conjugate Vacci ne, 20-valent ([id number]) 02/01/2023 Seasonal Influenza Vac., MDV , IM, [...] Assessment Author No 03/11/2015 5:29 PM EDT Teddy Payne RN * Are you blind or do [...] Entry Date Author No 03/11/2015 5:29 PM Tdedy Singh RN documented in this encounter Miscellaneous Notes * Telephone Encounter - Carol Dahl LPN - 08/26/2024 6:55 AM ESTRefused Prescriptions: Disp Refills Ozempic (2 MG/DOSE) 8 MG/3ML Subcutaneous * 5 Sig: INJECT 2 MG SUBCUTANEOUSLY ONE TIME PER WEEKRefused By: Fabiana DAHL for Refusal: Refill Not AppropriateReason for Refusal Comment: changed to Murtaza documented in this encounter Plan of Treatment Upcoming Encounters Date Type Department Care Team (Late st Contact Info) Description 10/20/2024 10:20 AM EST Laboratory Laboratory, [address] [place] [address] [facility], Lab [address] [place] [address] 10/29/2024 10:00 AM EST Telemedicine Hematology/Oncology, [facility] [address] [place] [address] Edward Eastman MD [address] [place] [phone] Cart, Telemed [facility] [address] [place] [address] 11/06/2024 10:30 AM EST Telemedicine Endocrinology [address] [place] [address] Ramonita Peace PA-C [address] [place] [place] [address] 02/25/2025 10:00 AM EDT Office Visit [facility] [address] [place] [address] Wesley Salguero MD [address] [place] [address] Scheduled Procedures Name Priority Associated Diagnoses Date/Ti me COLONOSCOPY FLEXIBLE PROXIMA L DIAGNOSTIC Recall Screening for colon cancer Health Maintenance Due Date Last Done Comments DISCUSS TOBACCO CESSATION (REFER TO SMARTSET #[id number]) 1968 Depression Screening 1980 HIV Screening 1983 [...] or Tdap) 05/19/2027 05/19/2017 Colonoscopy 05/16/2034 05/16/2024, 0811/2023, 08/30/2021, Additional history exists Colorectal Cancer Screening [...] this encounter Medical Devices Implanted Type Area Check Clerk Device Identifier Shelf Expiration Date Model / Serial / Lot Neurostimul Intellis Adaptiv - [id number] - [id number] Implanted:Qty: 1 on 09/28/2022 by Tanner Bruce MD at OR [facility] N/A: Back [employer] 09/06/2023 [id number] / [id number] / Vectris Surescan Mri 1x8 Compact Lead Kit For Scs Implanted:Qty: 1 on 09/28/2022 by Tanner Bruce MD at OR [facility] N/A: Back Med[employer]onic 07/14/2026 [id number] / / [id number] Vectris Surescan Mri 1x8 Compact Lead Kit For Scs Implanted:Qty: 1 on 09/28/2022 by Tanner Bruce MD at OR [facility] N/A: Back [employer] 08/23/2026 [id number] / / [id number] Envelope Tyrx Lg Antibacterial - [id number] Implanted:Qty: 1 on 09/28/2022 by Tanner Bruce MD at OR [facility] N/A: Back [employer] 12/17/2022 [id number] / / [id number] Sprint Microlead 2.0 With Onepass Introducer Implanted:Qty: 1 on 01/09/2024 by Tanner Bruce MD at OR [facility] 05/03/2025 [id number] / / [id number] documented as of this encounter Advance Directives [...] the patient have Health Care Power of Staff Consultant? Yes, not currently available Care Teams Health Services Information Specialist Relationship Specialty Start Date End Date Wesley Salguero MD [address] [facility] [place] [address] PCP - General Family Medicine 11/16/22 documented as of this encounter
== END 2024-08-26 11:40 | disposition home or self-care (01) ==
LOC: ASU 05:58 → 3E 05:58